=== PATIENT | male | born 1960 | race Caucasian/White ===

== ENCOUNTER 2019-07-09 01:34 | Day surgery (SDC) | payer MEDICARE, OTHER, SELFPAY ==
[2019-07-03 09:21] VITALS: BMI 32.6
--- NOTE | 2019-07-09 08:43 | WPDANESEPPF ---
Anes - Initial Pre Proc Eval Procedure: Operation Date: 07/09/19 09:30 Proposed Procedures p Esophagogastroduodenoscopy&Screen Colon - Clay Velasquez MD Date/Time: 07/09/19 08:43 Surgeon: Clay Velasquez MD Pre Op Diagnosis: Dysphagia, Neoplasm Screening Patient Data Age: 59 Gender: M Height: 5 ft 5 in Weight: 89 kg Allergies Allergy/AdvReac Type Severity Reaction Status Date / Time meperidine Allergy Unknown Verified 07/09/19 08:29 naproxen Allergy Unknown Verified 07/09/19 08:29 Penicillins Allergy Unknown Verified 07/09/19 08:29 Home Medications Medication Instructions Recorded Confirmed Type amlodipine-benazepril 1 cap PO DAILY 07/03/19 07/03/19 History apixaban [Eliquis] 5 mg PO BID 07/03/19 07/09/19 History aspirin 81 mg PO DAILY 07/03/19 07/03/19 History atorvastatin 80 mg PO DAILY 07/03/19 07/03/19 History dapagliflozin [Farxiga] 10 mg PO DAILY 07/03/19 07/03/19 History fenofibrate 160 mg PO DAILY 07/03/19 07/03/19 History fluticasone propionate [Flonase INTRANASAL 07/03/19 History Allergy Relief] furosemide [Lasix] 40 mg PO DAILY 07/03/19 07/03/19 History hydrochlorothiazide 25 mg PO DAILY 07/03/19 07/03/19 History insulin aspart U-100 [Novolog 20 unit SUBCUT TID 07/03/19 07/03/19 History U-100 Insulin aspart] insulin detemir U-100 [Levemir 30 unit SUBCUT HS 07/03/19 07/03/19 History FlexTouch U-100 Insuln] [id number] [Creon] 1 cap PO BID 07/03/19 07/03/19 History losartan 100 mg PO DAILY 07/03/19 07/03/19 History metoclopramide HCl 10 mg PO Q6H PRN 07/03/19 07/03/19 History metronidazole 500 mg PO Q12H 07/03/19 07/03/19 History omega 6-ryf-pji-fish oil [[place]-3] cap PO 07/03/19 History oxycodone-acetaminophen [Percocet] 1 tablet PO Q6H PRN 07/03/19 07/03/19 History pregabalin [Lyrica] 150 mg PO HS 07/03/19 07/03/19 History sotalol 80 mg PO BID 07/03/19 07/03/19 History tamsulosin 0.4 mg PO HS 07/03/19 07/03/19 History tizanidine 2 mg PO HS 07/03/19 07/03/19 History venlafaxine 37.5 mg PO DAILY 07/03/19 07/03/19 History Patient hx anesthesia problems: none Family hx anesthesia problems: none PMFSH Past Medical History Medical History Anxiety CAD (coronary artery disease) Cardiac defibrillator in place CVA (cerebral vascular accident) Diabetes GERD (gastroesophageal reflux disease) Pacemaker Tobacco abuse Surgical History Surgical History Hx of CABG Stented coronary artery Family History Family History Father Family history of malignant neoplasm of esophagus Social History Social History Smoking status: Former smoker Smoking end date: 06/11/87 Alcohol intake: never Gender identity (if verbalized by the patient): Male Anes - Eval Final PreProcedure Day of Procedure 07/09/19 08:43 Patient weight: obese Heart: regular rate and rhythm Lungs: decreased breath sounds Airway: Mallampati scale Neurological: alert and oriented Last oral intake: >/= 8 hours ASA classification: IV Emergent: no Anesthetic plan: proceed Anesthesia type and monitoring: general GIVS and standard monitoring Other findings: propofol etomidate Informed Consent: The patient's anesthetic plan and its attendant risks and benefits were discussed with the patient/family/POA. Questions were solicited and answers provided to the satisfaction of the patient/family/POA.
[2019-07-09 08:48] LABS: Glucose Point of Care 172 (65-105)
[2019-07-09] MEDS: LACTATED RINGERS 1,000 ML 150 ML IV CONT (08:48)
[2019-07-09 08:49] VITALS: BP 142/83; PULSE 82; RESP 14; TEMP 36.6; O2SAT 97
--- NOTE | 2019-07-09 09:06 | PM.HPGS ---
History of Present Illness History of Present Illness Consent: Risks, benefits, and alternatives have been discussed and questions answered. Patient agrees to proceed with procedure. Chief complaint: Dysphagia, Neoplasm Screening Narrative: Clyde Esquivel Sr. is a 59 year old male with bloating and diarrhea in cycles, improve briefly after using flagyl one day. I also prescribed xifaxan with only minimal relief. Also history of polyps, hemorrhoidectomy. Review of Systems Constitutional: Constitutional: Denies headache(s) and Denies weakness Eyes: Eyes: Denies blurry vision ENT: Reports Normal hearing present, Denies headache(s) and Denies neck pain Cardiovascular: Cardiovascular: Denies chest pain and Denies dyspnea Respiratory: Respiratory: Denies dyspnea Gastrointestinal: Gastrointestinal: Reports no additional gastrointestinal complaints Genitourinary: Genitourinary: Denies dysuria Musculoskeletal: Musculoskeletal: Denies neck pain Integumentary/Breasts: Skin/Breast: Denies dry skin Neurologic: Reports Normal hearing present, Denies headache(s) and Denies weakness Psychiatric: Psychiatric: Denies anxiety Endocrine: Endocrine: Denies change in body appearance Hematologic/Lymphatic: Hematologic/Lymphatic: Denies easy bleeding Allergic/Immunologic: Allergic/Immunologic: Denies urticaria PMFSH Past Medical History Medical History Anxiety CAD (coronary artery disease) Cardiac defibrillator in place CVA (cerebral vascular accident) Diabetes GERD (gastroesophageal reflux disease) Pacemaker Tobacco abuse Surgical History Surgical History Hx of CABG Stented coronary artery Family History Family History Father Family history of malignant neoplasm of esophagus Social History Social History Smoking status: Former smoker Smoking end date: 06/11/87 Alcohol intake: never Gender identity (if verbalized by the patient): Male Meds Home Medications and Allergies Home Medications Medication Instructions Recorded Confirmed Type amlodipine-benazepril 1 cap PO DAILY 07/03/19 07/03/19 History apixaban [Eliquis] 5 mg PO BID 07/03/19 07/09/19 History aspirin 81 mg PO DAILY 07/03/19 07/03/19 History atorvastatin 80 mg PO DAILY 07/03/19 07/03/19 History dapagliflozin [Farxiga] 10 mg PO DAILY 07/03/19 07/03/19 History fenofibrate 160 mg PO DAILY 07/03/19 07/03/19 History fluticasone propionate [Flonase INTRANASAL 07/03/19 History Allergy Relief] furosemide [Lasix] 40 mg PO DAILY 07/03/19 07/03/19 History hydrochlorothiazide 25 mg PO DAILY 07/03/19 07/03/19 History insulin aspart U-100 [Novolog 20 unit SUBCUT TID 07/03/19 07/03/19 History U-100 Insulin aspart] insulin detemir U-100 [Levemir 30 unit SUBCUT HS 07/03/19 07/03/19 History FlexTouch U-100 Insuln] [id number] [Creon] 1 cap PO BID 07/03/19 07/03/19 History losartan 100 mg PO DAILY 07/03/19 07/03/19 History metoclopramide HCl 10 mg PO Q6H PRN 07/03/19 07/03/19 History metronidazole 500 mg PO Q12H 07/03/19 07/03/19 History omega 6-yqv-hfm-fish oil [[place]-3] cap PO 07/03/19 History oxycodone-acetaminophen [Percocet] 1 tablet PO Q6H PRN 07/03/19 07/03/19 History pregabalin [Lyrica] 150 mg PO HS 07/03/19 07/03/19 History sotalol 80 mg PO BID 07/03/19 07/03/19 History tamsulosin 0.4 mg PO HS 07/03/19 07/03/19 History tizanidine 2 mg PO HS 07/03/19 07/03/19 History venlafaxine 37.5 mg PO DAILY 07/03/19 07/03/19 History Allergies Allergy/AdvReac Type Severity Reaction Status Date / Time meperidine Allergy Unknown Verified 07/09/19 08:29 naproxen Allergy Unknown Verified 07/09/19 08:29 Penicillins Allergy Unknown Verified 07/09/19 08:29 Vital Signs Vital Signs - 24 hr 07/09/19 08:49 Tempera
[2019-07-09 09:42] VITALS: BP 134/87; PULSE 77; RESP 18; O2SAT 97
[2019-07-09 09:52] VITALS: BP 152/86; PULSE 75; RESP 17; O2SAT 95
[2019-07-09 09:56] LABS: Glucose Point of Care 149 (65-105)
[2019-07-09 10:02] VITALS: BP 173/94; PULSE 75; RESP 22; O2SAT 97
== END 2019-07-09 10:19 | disposition home or self-care (01) ==
PROVIDERS: PCP Internal Medicine; Visit Provider Internal Medicine Gastroenterology
PROC: 0DJ08ZZ Inspection of Upper Intestinal Tract, Via Natural or Artificial Opening Endoscopic (ICD-10-PCS; CPT 43235; principal; 2019-07-09 09:30)
DX: Z12.11 Encounter for screening for malignant neoplasm of colon (principal); K57.30 Diverticulosis of large intestine without perforation or abscess without bleeding; K64.8 Other hemorrhoids; Z86.010 Personal history of colon polyps; K22.70 Barrett's esophagus without dysplasia; K63.89 Other specified diseases of intestine; K29.70 Gastritis, unspecified, without bleeding; I25.10 Atherosclerotic heart disease of native coronary artery without angina pectoris; E11.9 Type 2 diabetes mellitus without complications; K21.9 Gastro-esophageal reflux disease without esophagitis; Z95.810 Presence of automatic (implantable) cardiac defibrillator; Z79.01 Long term (current) use of anticoagulants; Z79.82 Long term (current) use of aspirin; Z79.4 Long term (current) use of insulin; Z95.1 Presence of aortocoronary bypass graft; Z95.5 Presence of coronary angioplasty implant and graft; Z87.891 Personal history of nicotine dependence; E66.9 Obesity, unspecified; Z68.33 Body mass index [BMI] 33.0-33.9, adult
CPT/HCPCS: 45380; 43239; 88305; J2704; J7120

== ENCOUNTER 2019-07-31 16:44 | IRF | payer MEDICARE, OTHER, SELFPAY ==
[2019-07-31 17:11] VITALS: BP 153/71; PULSE 74; RESP 20; TEMP 36.7; O2SAT 95; BMI 31.6
--- NOTE | 2019-07-31 17:25 | ADMGEN ---
This patient, Clyde Esquivel, was admitted to [facility] Room 223-02. Patient/family oriented to hospital policies and general routines including ID bracelet, bed and alarms, visiting hours, pain management, procedures, bathroom and other care routines, personal items, smoking policy, room service/diet, and visiting hours. Valuables list has been completed. Information on how to activate the Rapid Response Team has been discussed. Patient/Family are encouraged to report perceived risks to care and to ask questions if they do not understand what they are told or what they should do.
[2019-07-31 20:46] LABS: Glucose Point of Care 257 (65-105)
[2019-07-31 22:00] VITALS: BP 153/60; PULSE 74; RESP 18; TEMP 37.1; O2SAT 95
[2019-07-31] MEDS: AZELASTINE HCL NASAL 0.1% 137 MCG/SPR 30 ML BTL 1 SPRAY NASAL (22:50)
[2019-07-31] MEDS: SERTRALINE HCL 25 MG TABLET PO (22:51)
[2019-07-31] MEDS: TAMSULOSIN HCL 0.4 MG CAPSULE PO (22:52)
[2019-07-31] MEDS: ATORVASTATIN 40 MG TABLET 80 MG PO (22:53)
[2019-07-31] MEDS: FENOFIBRATE 160 MG TABLET PO (22:54)
[2019-07-31] MEDS: SOTALOL HCL 40 MG TABLET 120 MG PO (22:55)
[2019-07-31] MEDS: OXcarbazepine 150 MG TABLET 300 MG PO (22:56)
[2019-07-31] MEDS: INSULIN DETEMIR 100 UNITS/ML 25 UNITS SUB-Q (23:02)
[2019-07-31] MEDS: PREGABALIN 75 MG CAPSULE 150 MG PO (23:05)
[2019-08-01] VITALS (7 sets, daily range): BP systolic 110–142; BP diastolic 51–65; PULSE 66–75; RESP 17–18; TEMP 36.2–36.8; O2SAT 94–98; BMI 31.6
[2019-08-01 04:46] LABS: Add Urine Microscopic? YES; Appearance Urine Clear (Clear); Bacteria Urine Trace /hpf; Bilirubin Urine Negative (Negative); Blood Urine 1+ (Negative); Color Urine Yellow (Yellow); Glucose Urine UA 3+ mg/dL (Negative); Ketones Urine Negative (Negative); Leukocyte Esterase Ur Negative LEU/UL (Negative); Mucus Urine Rare /lpf; Nitrate Urine Negative (Negative); Protein Urine Negative (Negative); Urobilinogen Urine Negative mg/dL (<2.0)
[2019-08-01 05:33] LABS: Basophils Absolute Auto 0.1 K/mm3 (0.0-0.1); Basophils Percent Auto 1.1 % (0.2-1.2); Eosinophils Absolute Auto 0.3 K/mm3 (0-0.3); Eosinophils Percent Auto 4.7 % (0-4.4); Hematocrit 33.6 % (42.0-52.0); Hemoglobin 10.6 g/dL (14.0-18.0); Immature Granulocyte Absolute 0.07 K/mm3 (0.00-0.031); Lymphocytes Absolute Auto 1.46 K/mm3 (0.9-3.2); Lymphocytes Percent Auto 20.7 % (18.3-44.2); Mean Corpuscular HGB Conc 31.5 g/dl (32-36); Mean Corpuscular Volume 88.7 fl (80-100); Mean Platelet Volume 10.3 fl (7.4-10.4); Monocytes Absolute Auto 0.8 K/mm3 (0.1-0.6); Monocytes Percent Auto 11.6 % (2.6-8.5); Neutrophils Absolute Auto 4.3 K/mm3 (1.3-6.7); Neutrophils Percent Auto 60.9 % (45.5-73.1); Platelet Count Result 240 k/mm3 (150-375); Red Blood Count 3.79 M/mm3 (4.6-6.20); Red Cell Distribution Width 14.8 % (11.5-14.5); White Blood Count 7.1 K/mm3 (4.5-10.0)
[2019-08-01 05:44] LABS: Blood Urea Nitrogen 27 mg/dL (9-20); Calcium 9.1 mg/dL (8.4-10.2); Carbon Dioxide 33 mmol/L (22-30); Chloride 96 mmol/L (98-107); Cholesterol 192 mg/dL (0-200); Estimated CRCL calculation 63 ml/min; Estimated Glomerular Filt Rate > 60; Glucose 180 mg/dL (75-110); HDL Direct 31 mg/dL; Potassium 3.8 mmol/L (3.4-5.0); Sodium 139 mmol/L (137-145); Triglycerides 503 mg/dL (<150)
[2019-08-01 05:45] LABS: Hemoglobin A1C 7.5 % (<5.7)
[2019-08-01 05:55] LABS: LDL Cholesterol Direct 97 mg/dL
[2019-08-01] MEDS: AZELASTINE HCL NASAL 0.1% 137 MCG/SPR 30 ML BTL 1 SPRAY NASAL ×2 (06:19→17:12)
[2019-08-01 07:06] LABS: Glucose Point of Care 169 (65-105)
[2019-08-01] MEDS: PHENAZOPYRIDINE HCL 100 MG TABLET 200 MG PO ×3 (08:22→17:12)
[2019-08-01] MEDS: OMEGA 3 POLYUNSAT FATTY ACIDS 1 GM CAP 2 GM PO (08:22)
[2019-08-01] MEDS: SOTALOL HCL 40 MG TABLET 120 MG PO ×2 (08:23→19:55)
[2019-08-01] MEDS: LANSOPRAZOLE ORAL SUSP 30 MG/10 ML ORAL.SUSP PO (08:23)
[2019-08-01] MEDS: OXcarbazepine 150 MG TABLET 300 MG PO ×2 (08:23→17:12)
[2019-08-01] MEDS: TAMSULOSIN HCL 0.4 MG CAPSULE PO ×2 (08:23→17:11)
[2019-08-01] MEDS: hydroCHLOROthiazide 25 MG TABLET PO (08:24)
[2019-08-01] MEDS: FLUTICASONE PROPIONATE 0.05% NA SPR 16 GM BTL (*BKC) 1 SPRAY NASAL (08:24)
[2019-08-01] MEDS: AMLODIPINE BESYLATE 5 MG TABLET PO (08:24)
[2019-08-01] MEDS: SERTRALINE HCL 25 MG TABLET PO ×2 (08:24→17:11)
[2019-08-01] MEDS: LIPASE/AMYLASE/PROTEASE 12,000 UNITS CAP 2 CAP PO (08:24)
[2019-08-01] MEDS: LOSARTAN POTASSIUM 100 MG TABLET PO (08:24)
[2019-08-01] MEDS: INSULIN ASPART (*BKC) 100 UNITS/ML 20 UNITS SUB-Q ×2 (08:25→12:02)
[2019-08-01] MEDS: INSULIN DETEMIR 100 UNITS/ML 25 UNITS SUB-Q ×2 (08:26→21:06)
[2019-08-01 11:58] LABS: Glucose Point of Care 160 (65-105)
--- NOTE | 2019-08-01 12:38 | PHAR ---
The patient's home med of Farxiga 10mg has been verified.
--- NOTE | 2019-08-01 13:43 | PCSTNOTE ---
Addendum entered by TOMI Kelly 08/02/19 13:56: Update 08/02/19 Patient c/o difficulty chewing regular solids since diet upgrade. Would recommend downgrade to soft and bite-size solids with ST to focus on oral-motor therapy. Original Note: Please refer to the Bedside Swallow Evaluation in the EMR.
--- NOTE | 2019-08-01 14:31 | PHAR ---
HOME MEDICATION VERIFIED BY PHARMACY: AMERICAINE (BENZOCAINE 20%) HEMORRHOIDAL OINTMENT
--- NOTE | 2019-08-01 15:40 | RPD ---
INDIVIDUALIZED PLAN OF CARE FOR Clyde Esquivel Brief Synthesis of Pre-Admission Screen, Post-Admission Evaluation and Therapy Evaluations: The patient presents to rehab with Right cerebral hemisphere stroke with hemorrhage. Comorbidities include Hypertension, coronary artery disease, status post right carotid endarterectomy, urinary retention, acute pain, migraine headaches, cardiomyopathy, left hemiparesis, diplopia, depression, anxiety, dysphagia, delayed processing. The patient requires physician services for neurology services, medical oversight, and coordination of care. The patient needs physician monitoring and treatment of anemia, perioperative blood loss, monitoring for adverse reactions to new medications, monitoring for infection, monitoring of urinary retention, and pain control. The patient requires nursing services for frequent neuro checks, medication management and education, pressure relief and skin care management, monitoring of labs, bladder training, and fall/safety precautions. Deficits include:ADLs, Balance, Cognition, Endurance, Mobility, Pain Management, ROM, Safety, Strength, Transfers Hot Dip Tinning Supervisor/Case Management for: Discharge Planning and Patient/Family Counseling Physical Therapy: 5 days per week for 90 minutes. Treatments may include: Therapeutic Exercise, Gait Training, Neuromuscular Re-education, Transfer Training, Community Reintegration, Bed Mobility, Patient/Family Education, Wheelchair Mobility Group Therapy/Concurrent Therapy Rationales: -Improve attention span during functional activities in a distracted environment. -Enhance problem solving and/or adequate judgment skills during functional activities in a distracted environment. -Promote increased safety awareness in a distracted environment to reduce fall risk with functional tasks, transfers, and ambulation to allow a more safe, self-sufficient return to the home environment. -Improve dynamic balance skills to promote safety and independence with functional activities in a distracted environment for maximum gain. Occupational Therapy: 5 days per week for 90 minutes. Treatments may include: Therapeutic Exercise, Therapeutic Activity, Cognitive Training, Self-Care Transfer Training, Community Reintegration, Home Management, Patient/Family Education, Wheelchair Mobility Training, Energy Conservation Training Group Therapy/Concurrent Therapy Rationales: -Allow therapist to observe and teach generalization and carry-over of skills learned in individual therapy. -Enhance problem solving and sequencing skills during therapeutic activities in a distracted environment. -Promote increased safety awareness in a realistic setting to reduce fall risk with functional tasks due to visual and verbal distractions. -Increase functional level with ADLs, ADL transfers and use of adaptive equipment through therapeutic activities with others while promoting safety to allow a more safe, self-sufficient return home. Medical Prognosis: Good Anticipated Length of Stay: 12 days Rehab Goals: Eating Goal: 05-Setup or Clean Up Assistance Oral Hygiene Goal: 06-Independent Toileting Hygiene Goal: 04-Supervision or Touching Assistance Shower/Bathe Self Goal: 04-Supervision or Touching Assistance Upper Body Dressing Goal: 04-Supervision or Touching Assistance Lower Body Dressing Goal: 04-Supervision or Touching Assistance Putting On/Taking Off Footwear Goal: 04-Supervision or Touching Assistance Rolling Left and Right Goal: 06-Independent Sit to Lying Goal: 06-Independent Lying to Sitting on Side of Bed Goal: 06-Independent Sit to Stand Goal: 06-Independent Chair/Ywe-an-Kuvgc Transfer Goal: 06-Independent Toilet Transfer Goal: 06-Independent Car Transfer Goal: 06-Independent Walk 10' Goal: 06-Independent Walk 50' with Two Turns Goal: 06-Independent Walk 150' Goal: 06-Independent Walk 10' on Uneven Surface Goal: 06-Independent 1 Step (Curb) Goal: 06-Independent 4 Steps Goal: 06-Independ
[2019-08-01] MEDS: TRAMADOL HCL 50 MG TABLET PO (16:00)
[2019-08-01 17:02] LABS: Glucose Point of Care 97 (65-105)
--- NOTE | 2019-08-01 17:03 | PC.NURSE ---
Glucose results 97. MD notified and to hold dinnertime insulin dose.
--- NOTE | 2019-08-01 18:36 | PC.NURSE ---
pt was upgraded earlier to a regular diet per speech therapy. patient had difficulty with the food consistency and did not eat well. patient and spouse requested he go back to minced and moist. Md updated and received new order. will continue to monitor.
--- NOTE | 2019-08-01 18:37 | PC.NURSE ---
pt started on pyridium at approx 0900. His urine is currently reddish yellow in color. acharya continues to be intact. will continue to monitor
--- NOTE | 2019-08-01 19:45 | REHAB_ITS ---
DATE OF SERVICE: 08/01/2019 This 59 years old right-handed male has been admitted to the rehab floor of [facility] with the primary rehab impairment category of stroke and the etiological diagnosis of right cerebral hemisphere stroke with hemorrhage. The patient was seen at 3:00 p.m. on 08/01/2019. HISTORY OF PRESENT ILLNESS: This 59 years old right-handed male with prior medical history of: 1. Cardiomyopathy. 2. Bypass surgery. 3. AICD. 4. Migraine headaches. Presented to [facility] on 07/25/2019, to undergo a right carotid endarterectomy with Dr. Ruth. Postoperatively, within a few hours, he had to undergo thrombectomy of the right coronary artery with patch angioplasty. The findings at that time were thrombus of the right internal carotid artery. A CT scan of the head was obtained and revealed the presence of an evolving stroke within the right cerebral hemisphere with a small focal area of hemorrhage as well. Neurology Team was consulted and were holding off on anticoagulation in the setting of hemorrhage and were planning to hold off for a couple of weeks post stroke as well. A repeat CT head on 07/28/2019, demonstrated no change from the right middle cerebral artery territorial infarct with hemorrhagic transformation and no mass effect. Physical examination revealed weakness of the left hand, visual difficulties on the left side, diplopia, left hemiparesis, and urinary retention. His Clarke catheter was removed on 07/28/2019, replaced the same day because of the recurrence of the retention. He was started on Flomax and voiding trial to be repeated in 2 to 3 days. He was transferred out of ICU on 07/29/2019. He passed his swallowing study and was on dysphagia to mechanical soft diet with thin liquids. Physical examination continued to reveal left-sided hemiparesis, diplopia, decreased gross motor control, decreased safety awareness, and impaired balance. Therapy was initiated at the acute care facility and the patient transferred to us from [facility] on 07/31/2019. SURGERY OR FALL: The patient has had major surgery in the 100 days prior to admission. He has had 1 fall in the past year and 1 fall with injury in the past year as well. PAST MEDICAL HISTORY: As mentioned above, migraine headache, carotid artery stenosis, coronary artery disease with cardiomyopathy, and hypertension. PAST SURGICAL HISTORY: Cardiac bypass surgery, knee surgery. SOCIAL HISTORY: . Nonsmoker. No alcohol abuse. FAMILY HISTORY: Nothing known. PRIOR LEVEL OF FUNCTION: Eating was independent so as the oral care, toileting, shower, bathing, upper body, lower body, footwear, rolling left and right, sit to lying, lying to sitting, sit to stand, bed to chair transfer, toilet transfer, the patient was previously ambulating independently 750 feet without assistive device, and was able to complete 5 stairs independently. CURRENT LEVEL OF FUNCTION: Eating was independent. Oral care was partial moderate assistance. Toilet hygiene, substantial maximal assistance. Bathing and shower, substantial maximal assistance. Upper body, substantial maximal assistance. Lower body, substantial maximal assistance. Footwear, substantial maximal assistance. Rolling left and right required supervision or touching assistance. Sit to lying, partial moderate assistance. Lying to sitting, partial moderate assistance. Sit to stand, partial moderate assistance. Xnh-kx-tcetq transfer, partial moderate assistance. Toilet transfer, partial moderate assistance. The patient has walked, partial moderate assistance with single-point cane for 140 feet. Wheelchair, not tested. Stairs, not tested. GOALS: Our therapist will evaluate the patient and establish the goals; however, upon pre-admission screening, t
[2019-08-01] MEDS: FENOFIBRATE 160 MG TABLET PO (19:54)
[2019-08-01] MEDS: ATORVASTATIN 40 MG TABLET 80 MG PO (19:54)
[2019-08-01] MEDS: SERTRALINE HCL 50 MG TABLET PO (19:57)
[2019-08-01] MEDS: busPIRone HCL 5 MG TABLET PO (19:57)
[2019-08-01] MEDS: PREGABALIN 75 MG CAPSULE 150 MG PO (20:01)
[2019-08-01 21:04] LABS: Glucose Point of Care 158 (65-105)
[2019-08-02 06:00] VITALS: BP 154/75; PULSE 78; RESP 19; TEMP 36.3; O2SAT 96
[2019-08-02] MEDS: AZELASTINE HCL NASAL 0.1% 137 MCG/SPR 30 ML BTL 1 SPRAY NASAL ×2 (06:27→18:03)
[2019-08-02 06:38] LABS: Glucose Point of Care 125 (65-105)
[2019-08-02] MEDS: INSULIN ASPART (*BKC) 100 UNITS/ML 20 UNITS SUB-Q ×3 (08:40→18:05)
[2019-08-02] MEDS: AMLODIPINE BESYLATE 5 MG TABLET PO (08:41)
[2019-08-02] MEDS: PHENAZOPYRIDINE HCL 100 MG TABLET 200 MG PO ×3 (08:41→18:02)
[2019-08-02] MEDS: FLUTICASONE PROPIONATE 0.05% NA SPR 16 GM BTL (*BKC) 1 SPRAY NASAL (08:42)
[2019-08-02] MEDS: hydroCHLOROthiazide 25 MG TABLET PO (08:44)
[2019-08-02 08:45] VITALS: PULSE 76
[2019-08-02] MEDS: LIPASE/AMYLASE/PROTEASE 12,000 UNITS CAP 2 CAP PO (08:45)
[2019-08-02] MEDS: SOTALOL HCL 40 MG TABLET 120 MG PO ×2 (08:45→20:15)
[2019-08-02] MEDS: TIZANIDINE HCL 2 MG TABLET PO (08:46)
[2019-08-02] MEDS: METOCLOPRAMIDE HCL 10 MG TABLET PO (08:46)
[2019-08-02] MEDS: OMEGA 3 POLYUNSAT FATTY ACIDS 1 GM CAP 2 GM PO (08:47)
[2019-08-02] MEDS: SERTRALINE HCL 25 MG TABLET PO (08:47)
[2019-08-02] MEDS: TAMSULOSIN HCL 0.4 MG CAPSULE PO ×2 (08:48→18:03)
[2019-08-02] MEDS: LOSARTAN POTASSIUM 100 MG TABLET PO (08:48)
[2019-08-02] MEDS: OXcarbazepine 150 MG TABLET 300 MG PO ×2 (08:48→18:02)
[2019-08-02] MEDS: INSULIN DETEMIR 100 UNITS/ML 25 UNITS SUB-Q ×2 (08:52→20:13)
[2019-08-02] MEDS: TRAMADOL HCL 50 MG TABLET PO (11:16)
[2019-08-02 12:15] LABS: Glucose Point of Care 101 (65-105)
[2019-08-02] MEDS: PANTOPRAZOLE 40 MG TABLET PO (12:43)
[2019-08-02 14:00] VITALS: BP 116/61; PULSE 74; RESP 18; TEMP 36.9; O2SAT 94
[2019-08-02 16:00] VITALS: PULSE 74; RESP 18; O2SAT 94
[2019-08-02 20:15] VITALS: PULSE 80
[2019-08-02] MEDS: ATORVASTATIN 40 MG TABLET 80 MG PO (20:17)
[2019-08-02] MEDS: PREGABALIN 75 MG CAPSULE 150 MG PO (20:18)
[2019-08-02] MEDS: FENOFIBRATE 160 MG TABLET PO (20:19)
[2019-08-02] MEDS: busPIRone HCL 5 MG TABLET PO (20:19)
[2019-08-02] MEDS: SERTRALINE HCL 50 MG TABLET PO (20:19)
[2019-08-02 21:36] LABS: Glucose Point of Care 99 (65-105)
[2019-08-02 22:00] VITALS: BP 112/62; PULSE 74; RESP 16; TEMP 36.6; O2SAT 93
[2019-08-03 05:08] VITALS: BP 96/57; PULSE 72; RESP 18; TEMP 36.3; O2SAT 96
[2019-08-03] MEDS: AZELASTINE HCL NASAL 0.1% 137 MCG/SPR 30 ML BTL 1 SPRAY NASAL ×2 (06:51→17:35)
[2019-08-03 06:58] LABS: Glucose Point of Care 113 (65-105)
[2019-08-03] MEDS: FLUTICASONE PROPIONATE 0.05% NA SPR 16 GM BTL (*BKC) 1 SPRAY NASAL (08:37)
[2019-08-03] MEDS: TIZANIDINE HCL 2 MG TABLET PO (08:37)
[2019-08-03] MEDS: AMLODIPINE BESYLATE 5 MG TABLET PO (08:38)
[2019-08-03] MEDS: PHENAZOPYRIDINE HCL 100 MG TABLET 200 MG PO ×3 (08:38→17:36)
[2019-08-03] MEDS: OMEGA 3 POLYUNSAT FATTY ACIDS 1 GM CAP 2 GM PO (08:39)
[2019-08-03] MEDS: hydroCHLOROthiazide 25 MG TABLET PO (08:40)
[2019-08-03] MEDS: LIPASE/AMYLASE/PROTEASE 12,000 UNITS CAP 2 CAP PO (08:41)
[2019-08-03] MEDS: LOSARTAN POTASSIUM 100 MG TABLET PO (08:41)
[2019-08-03] MEDS: OXcarbazepine 150 MG TABLET 300 MG PO ×2 (08:42→17:38)
[2019-08-03] MEDS: PANTOPRAZOLE 40 MG TABLET PO (08:42)
[2019-08-03 08:43] VITALS: PULSE 70
[2019-08-03] MEDS: SOTALOL HCL 40 MG TABLET 120 MG PO (08:43)
[2019-08-03] MEDS: TAMSULOSIN HCL 0.4 MG CAPSULE PO ×2 (08:43→17:39)
[2019-08-03] MEDS: SERTRALINE HCL 25 MG TABLET PO (08:43)
[2019-08-03] MEDS: INSULIN ASPART (*BKC) 100 UNITS/ML 20 UNITS SUB-Q ×2 (08:48→12:32)
[2019-08-03] MEDS: INSULIN DETEMIR 100 UNITS/ML 25 UNITS SUB-Q ×2 (08:49→21:13)
[2019-08-03] MEDS: TRAMADOL HCL 50 MG TABLET PO (08:59)
[2019-08-03 11:53] LABS: Glucose Point of Care 104 (65-105)
[2019-08-03 14:00] VITALS: BP 98/51; RESP 16; TEMP 36.9; O2SAT 90
[2019-08-03 16:51] LABS: Glucose Point of Care 50 (65-105)
[2019-08-03] MEDS: ATORVASTATIN 40 MG TABLET 80 MG PO (20:30)
[2019-08-03] MEDS: busPIRone HCL 5 MG TABLET PO (20:31)
[2019-08-03] MEDS: FENOFIBRATE 160 MG TABLET PO (20:31)
[2019-08-03] MEDS: SOTALOL HCL 40 MG, SOTALOL HCL 80 MG 120 MG PO (20:31)
[2019-08-03] MEDS: PREGABALIN 75 MG CAPSULE 150 MG PO (20:31)
[2019-08-03] MEDS: SERTRALINE HCL 50 MG TABLET PO (20:31)
[2019-08-03 21:05] LABS: Glucose Point of Care 153 (65-105)
[2019-08-03 22:00] VITALS: BP 112/53; PULSE 74; RESP 16; TEMP 36.8; O2SAT 94
[2019-08-04] MEDS: AZELASTINE HCL NASAL 0.1% 137 MCG/SPR 30 ML BTL 1 SPRAY NASAL ×2 (05:39→17:28)
[2019-08-04 06:00] VITALS: BP 94/58; PULSE 78; RESP 19; TEMP 36.1; O2SAT 95
[2019-08-04 06:31] LABS: Glucose Point of Care 137 (65-105)
[2019-08-04] MEDS: INSULIN ASPART (*BKC) 100 UNITS/ML 20 UNITS SUB-Q ×3 (08:58→17:24)
[2019-08-04] MEDS: OMEGA 3 POLYUNSAT FATTY ACIDS 1 GM CAP 2 GM PO (09:05)
[2019-08-04] MEDS: TAMSULOSIN HCL 0.4 MG CAPSULE PO ×2 (09:05→17:28)
[2019-08-04] MEDS: PANTOPRAZOLE 40 MG TABLET PO (09:06)
[2019-08-04] MEDS: PHENAZOPYRIDINE HCL 100 MG TABLET 200 MG PO ×3 (09:06→17:27)
[2019-08-04] MEDS: OXcarbazepine 150 MG TABLET 300 MG PO ×2 (09:06→17:27)
[2019-08-04] MEDS: hydroCHLOROthiazide 25 MG TABLET PO (09:06)
[2019-08-04] MEDS: AMLODIPINE BESYLATE 5 MG TABLET PO (09:06)
[2019-08-04] MEDS: SERTRALINE HCL 25 MG TABLET PO (09:06)
[2019-08-04] MEDS: LIPASE/AMYLASE/PROTEASE 12,000 UNITS CAP 2 CAP PO (09:07)
[2019-08-04] MEDS: LOSARTAN POTASSIUM 100 MG TABLET PO (09:07)
[2019-08-04] MEDS: FLUTICASONE PROPIONATE 0.05% NA SPR 16 GM BTL (*BKC) 1 SPRAY NASAL (09:08)
[2019-08-04] MEDS: INSULIN DETEMIR 100 UNITS/ML 25 UNITS SUB-Q (09:15)
[2019-08-04 12:11] LABS: Glucose Point of Care 201 (65-105)
[2019-08-04 14:00] VITALS: BP 112/62; PULSE 80; RESP 18; TEMP 36.6; O2SAT 98
--- NOTE | 2019-08-04 14:02 | PCDIET ---
Nutrition Follow-Up Complete: Decreased fat/cholesterol/sodium needs related to cardiovascular disease as evidenced by stroke, CAD, HTN. Patient to consume 75% or more of meals Goal not met. Average meal consumption is 63%. Nutrition Recommendation: Recommend continuation of DM CHO Consistent diet to establish carb consistency and help manage blood glucose levels. Recommend administration of motility agent, if medically appropriate; last recorded BM 07/30 Last recorded weight is 86.1 kg. Bowel Motility: +BM 07/30 Labs Reviewed: POC capillary glucose (137) Meds Noted:Lovaza, Reglan, Zoloft, Lipitor, Creon, Novolog , Cozaar, Ultram Additional Notes: Talked with pt's significant other. She states his appetite has been fairly good. Pt was Nauseous on Sunday but resolved quickly. Provided DM and stroke ed to pt's significant other. Will follow up with speech to track progress on swallowing and diet advancement. Follow up in 3 days.
--- NOTE | 2019-08-04 14:53 | PCNSR ---
On 08/04/19, the student, Sherri Woodard, provided care and completed [facility] documentation on this patient. I have reviewed the student's documentation and agree with the findings.
[2019-08-04 16:56] LABS: Glucose Point of Care 98 (65-105)
[2019-08-04 20:43] LABS: Glucose Point of Care 50 (65-105)
[2019-08-04 21:22] LABS: Glucose Point of Care 84 (65-105)
[2019-08-04] MEDS: ATORVASTATIN 40 MG TABLET 80 MG PO (21:46)
[2019-08-04] MEDS: busPIRone HCL 5 MG TABLET PO (21:47)
[2019-08-04] MEDS: FENOFIBRATE 160 MG TABLET PO (21:47)
[2019-08-04] MEDS: PREGABALIN 75 MG CAPSULE 150 MG PO (21:50)
[2019-08-04 21:55] VITALS: PULSE 80
[2019-08-04] MEDS: SOTALOL HCL 40 MG, SOTALOL HCL 80 MG 120 MG PO (21:55)
[2019-08-04] MEDS: SERTRALINE HCL 50 MG TABLET PO (21:57)
[2019-08-04 22:00] VITALS: BP 107/62; PULSE 74; RESP 17; TEMP 36.2; O2SAT 98
[2019-08-05] MEDS: AZELASTINE HCL NASAL 0.1% 137 MCG/SPR 30 ML BTL 1 SPRAY NASAL ×2 (05:41→18:06)
[2019-08-05 06:00] VITALS: BP 131/65; PULSE 77; RESP 18; TEMP 36.2; O2SAT 90
[2019-08-05 07:03] LABS: Glucose Point of Care 119 (65-105)
[2019-08-05] MEDS: AMLODIPINE BESYLATE 5 MG TABLET PO (08:29)
[2019-08-05] MEDS: FLUTICASONE PROPIONATE 0.05% NA SPR 16 GM BTL (*BKC) 1 SPRAY NASAL (08:29)
[2019-08-05] MEDS: PHENAZOPYRIDINE HCL 100 MG TABLET 200 MG PO ×3 (08:29→18:05)
[2019-08-05] MEDS: INSULIN ASPART (*BKC) 100 UNITS/ML 20 UNITS SUB-Q ×3 (08:29→18:07)
[2019-08-05] MEDS: polyethylene glycoL 3350 17 GM POWD.PACK PO (08:30)
[2019-08-05] MEDS: OXcarbazepine 150 MG TABLET 300 MG PO ×2 (08:30→18:05)
[2019-08-05] MEDS: LIPASE/AMYLASE/PROTEASE 12,000 UNITS CAP 2 CAP PO (08:30)
[2019-08-05] MEDS: PANTOPRAZOLE 40 MG TABLET PO (08:30)
[2019-08-05] MEDS: INSULIN DETEMIR 100 UNITS/ML 25 UNITS SUB-Q ×2 (08:30→20:55)
[2019-08-05] MEDS: OMEGA 3 POLYUNSAT FATTY ACIDS 1 GM CAP 2 GM PO (08:30)
[2019-08-05] MEDS: LOSARTAN POTASSIUM 100 MG TABLET PO (08:30)
[2019-08-05] MEDS: hydroCHLOROthiazide 25 MG TABLET PO (08:30)
[2019-08-05 08:31] VITALS: PULSE 76
[2019-08-05] MEDS: SERTRALINE HCL 25 MG TABLET PO (08:31)
[2019-08-05] MEDS: TAMSULOSIN HCL 0.4 MG CAPSULE PO ×2 (08:31→18:06)
[2019-08-05] MEDS: SOTALOL HCL 40 MG, SOTALOL HCL 80 MG 120 MG PO ×2 (08:31→20:54)
[2019-08-05 12:19] LABS: Glucose Point of Care 153 (65-105)
[2019-08-05 14:00] VITALS: BP 138/62; PULSE 78; RESP 20; TEMP 36.2; O2SAT 97
--- NOTE | 2019-08-05 14:16 | WPDNEURORHBP ---
Subjective Date/time seen: 08/05/19 14:16 Interval history: this 59-year-old gentleman who is significantly hard of hearing and also has decreased vision related to most likely he has underlying diabetic retinopathy is here on the acute rehab after suffering from right-sided intracranial hemorrhage which has left him with the visual field defect diplopia and left-sided annette plegia are much more involved than the leg he also has a Clarke catheter for which he will need the bladder training patient denies any headache neck pain chest pain shortness of breath fever chills sore throat diarrhea abdominal pain Review of Systems Review of Systems: All systems reviewed & are unremarkable except as noted in HPI and below Functional Status Ambulation Ability Ability to Ambulate 10 Feet: Standby Assistance Ability to Ambulate 50 Feet With 2 Turns: Standby Assistance Ability to Ambulate 150 Feet: Standby Assistance Ambulation Assistive Devices: Cane Transfers Ability Ability to Transfer In/Out of Chair: Standby Assistance Exam Const: General: comfortable and no acute distress Eyes: Other: left-sided visual field defect along with diabetic retinopathy Neck: Neck: supple and no JVD Resp: Effort & Inspection: normal respiratory effort Auscultation: clear to auscultation bilaterally Cardio: Rate: regular rate Rhythm: regular rhythm GI: GI Palp: Yes Soft to palpation Auscultation: normal bowel sounds Skin: General skin exam: normal color and no rashes or lesions noted Neuro: Other: patient has significant decreased hearing bilaterally and according to his does not want to wear the hearing aid he has diplopia related to his stroke and has abnormal gaze and needs patch for him to see fairly decently Extrem: General: normal to inspection Objective Data Vital Signs Vital Signs: Vital Signs - 24 hr 08/04/19 21:55 08/04/19 22:00 08/05/19 06:00 Temperature 36.2 C L 36.2 C L Pulse Rate 80 74 77 Respiratory Rate 17 18 Blood Pressure 107/62 131/65 Pulse Oximetry 98 90 08/05/19 08:31 Temperature Pulse Rate 76 Respiratory Rate Blood Pressure Pulse Oximetry Intake/Output Intake/Output: Intake & Output 08/02/19 08/03/19 08/04/19 08/05/19 23:59 23:59 23:59 23:59 Intake Total 1367 336 9790 360 Output Total 778 669 4875 850 Balance 1155 -30 750 -490 Meds/Results Medications: Active Medications Generic Name Dose Route Start Last Admin Trade Name Freq PRN Reason Stop Dose Admin Acetaminophen 1,000 mg 07/31/19 20:55 Tylenol Tablet PO Q6H PRN Mild Pain (1-3) or Fever Acetaminophen/Codeine Phosphate 2 tab 07/31/19 20:35 08/04/19 20:20 Tylenol #3 PO 2 tab Q6H PRN Administration Pain Rated 4-6 Albuterol 2 puff 08/02/19 14:43 Proventil Hfa INHALATION QIDRT PRN Shortness Of Breath Amlodipine Besylate 5 mg 08/01/19 09:00 08/05/19 08:29 Norvasc PO 5 mg DAILY ROLANDA Administration Lipase/Protease/Amylase 2 cap 08/01/19 09:00 08/05/19 08:[address] 12,000 Units Capsule PO 08/31/19 09:01 2 cap DAILY ROLANDA Administration Atorvastatin Calcium 80 mg 07/31/19 21:00 08/04/19 21:46 Lipitor PO 80 mg HS ROLANDA Administration Azelastine HCl 1 spray 07/31/19 18:00 08/05/19 05:41 Astelin NASAL 1 spray Q12H ROLANDA Administration Buspirone HCl 5 mg 08/01/19 21:00 08/04/19 21:47 Buspar PO 5 mg HS ROLANDA Administration Dextrose 12.5 gm 07/31/19 18:00 Dextrose 50% Syringe IV PUSH PRN PRN Hypoglycemia Protocol Fenofibrate 160 mg 07/31/19 21:00 08/04/19 21:47 Fenofibrate PO 160 mg HS ROLANDA Administration Fish Oil 2 gm 08/01/19 09:00 08/05/19 08:30 Lovaza PO 2 gm DAILY ROLANDA Administration Fluticasone Propionate 1 spray 08/01/19 09:00 08/05/19 08:29 Flonase 0.05% Nasal [place] NASAL 1 spray DAILY ROLANDA Administration Glucagon 1 mg 07/31/19 18:00 Glucagon For Inj IM PRN
--- NOTE | 2019-08-05 15:05 | PCCCNOTE ---
On 08/05/19, the student, [Ar Beckman], provided care and completed [facility] documentation on this patient. I have reviewed the student's documentation and agree with the findings.
[2019-08-05 17:27] LABS: Glucose Point of Care 98 (65-105)
[2019-08-05] MEDS: TRAMADOL HCL 50 MG TABLET PO (18:17)
[2019-08-05 20:54] VITALS: PULSE 80
[2019-08-05] MEDS: SERTRALINE HCL 50 MG TABLET PO (20:54)
[2019-08-05] MEDS: busPIRone HCL 5 MG TABLET PO (20:54)
[2019-08-05] MEDS: FENOFIBRATE 160 MG TABLET PO (20:54)
[2019-08-05] MEDS: PREGABALIN 75 MG CAPSULE 150 MG PO (20:55)
[2019-08-05] MEDS: ATORVASTATIN 40 MG TABLET 80 MG PO (20:55)
[2019-08-05 21:59] VITALS: BP 117/67; PULSE 76; RESP 16; TEMP 36.1; O2SAT 90
[2019-08-05 22:01] LABS: Glucose Point of Care 104 (65-105)
[2019-08-06 06:00] VITALS: BP 115/53; PULSE 77; RESP 18; TEMP 36.3; O2SAT 98
[2019-08-06] MEDS: AZELASTINE HCL NASAL 0.1% 137 MCG/SPR 30 ML BTL 1 SPRAY NASAL ×2 (06:04→18:22)
[2019-08-06] MEDS: TRAMADOL HCL 50 MG TABLET PO (06:25)
[2019-08-06 06:58] LABS: Glucose Point of Care 133 (65-105)
[2019-08-06] MEDS: PHENAZOPYRIDINE HCL 100 MG TABLET 200 MG PO ×3 (08:36→18:21)
[2019-08-06] MEDS: LIPASE/AMYLASE/PROTEASE 12,000 UNITS CAP 2 CAP PO (08:37)
[2019-08-06] MEDS: hydroCHLOROthiazide 25 MG TABLET PO (08:37)
[2019-08-06] MEDS: polyethylene glycoL 3350 17 GM POWD.PACK PO (08:38)
[2019-08-06] MEDS: PANTOPRAZOLE 40 MG TABLET PO (08:38)
[2019-08-06] MEDS: LOSARTAN POTASSIUM 100 MG TABLET PO (08:38)
[2019-08-06] MEDS: OXcarbazepine 150 MG TABLET 300 MG PO ×2 (08:38→18:21)
[2019-08-06] MEDS: OMEGA 3 POLYUNSAT FATTY ACIDS 1 GM CAP 2 GM PO (08:38)
[2019-08-06] MEDS: SERTRALINE HCL 25 MG TABLET PO (08:38)
[2019-08-06 08:39] VITALS: PULSE 77
[2019-08-06] MEDS: SOTALOL HCL 40 MG, SOTALOL HCL 80 MG 120 MG PO ×2 (08:39→20:37)
[2019-08-06] MEDS: AMLODIPINE BESYLATE 5 MG TABLET PO (08:42)
[2019-08-06] MEDS: TAMSULOSIN HCL 0.4 MG CAPSULE PO ×2 (08:42→18:21)
[2019-08-06] MEDS: FLUTICASONE PROPIONATE 0.05% NA SPR 16 GM BTL (*BKC) 1 SPRAY NASAL (08:43)
[2019-08-06] MEDS: INSULIN DETEMIR 100 UNITS/ML 25 UNITS SUB-Q ×2 (08:44→22:16)
[2019-08-06] MEDS: INSULIN ASPART (*BKC) 100 UNITS/ML 20 UNITS SUB-Q ×3 (08:49→18:19)
[2019-08-06 10:55] LABS: Glucose Point of Care 53 (65-105)
[2019-08-06 11:55] LABS: Glucose Point of Care 124 (65-105)
--- NOTE | 2019-08-06 12:40 | WPDNEURORHBP ---
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 with hemorrhagic component to it he also has a history of having had AICD cardiomyopathy coronary artery bypass surgery and history of migraine headache along with history of significant hearing loss and also decreased vision bilaterally most likely related to combination of either diabetic retinopathy or cataract the patient does not want to use the hearing aid and likewise has not seen an account manager employee benefits have a decent eye examination for proper care of his visual deficit Today his noticed any himself complained of jerking of the right arm along with the right leg in voluntarily and without any headaches nausea vomiting chest pain shortness of breath I examined him at the time he was having jerks is looks like to me as focal seizure affecting the right arm more so than the right leg Review of Systems Review of Systems: All systems reviewed & are unremarkable except as noted in HPI and below Functional Status Ambulation Ability Ability to Ambulate 10 Feet: Standby Assistance Ability to Ambulate 50 Feet With 2 Turns: Standby Assistance Ability to Ambulate 150 Feet: Standby Assistance Ambulation Assistive Devices: Cane Transfers Ability Ability to Transfer In/Out of Chair: Standby Assistance Exam Const: General: comfortable and no acute distress HENMT: General nose exam: Normal nares present Mouth: Yes moist mucous membranes Other: significant hearing loss bilaterally Eyes: General: appearance normal, both eyes and all related structures Other: decreased visual acuity with evidence of retinopathy and cataract formation Neck: Neck: supple and no JVD Resp: Effort & Inspection: normal respiratory effort Auscultation: clear to auscultation bilaterally Cardio: Rate: regular rate Rhythm: regular rhythm GI: GI Palp: Yes Soft to palpation Auscultation: normal bowel sounds Urinary Catheter: Urinary Catheter: patent and draining Skin: General skin exam: normal color and no rashes or lesions noted Neuro: Other: patient is awake and alert and well oriented however does have a memory deficit particularly of the short-term memory and he was unable to recall the conversation we had in yesterday's team conference he does have a hearing deficit and the visual deficit along with left-sided visual field defects it and the left-sided moderately severe hemiparesis I was able to catch him having what sounds like and look like focal seizure affecting the right arm on the right leg Extrem: General: normal to inspection Psych: Mental Status: mental status grossly normal Other: the patient does have decreased memory and at times decreased insight and the left-sided neglect Objective Data Vital Signs Vital Signs: Vital Signs - 24 hr 08/05/19 14:00 08/05/19 20:54 08/05/19 21:59 Temperature 36.2 C L 36.1 C L Pulse Rate 78 80 76 Respiratory Rate 20 16 Blood Pressure 138/62 117/67 Pulse Oximetry 97 90 08/06/19 06:00 08/06/19 08:39 Temperature 36.3 C L Pulse Rate 77 77 Respiratory Rate 18 Blood Pressure 115/53 L Pulse Oximetry 98 Intake/Output Intake/Output: Intake & Output 08/03/19 08/04/19 08/05/19 08/06/19 23:59 23:59 23:59 23:59 Intake Total 620 1850 840 360 Output Total 650 4161 820 4481 Balance -30 699 -10 -238 Meds/Results Medications: Active Medications Generic Name Dose Route Start Last Admin Trade Name Freq PRN Reason Stop Dose Admin Acetaminophen 1,000 mg 07/31/19 20:55 Tylenol Tablet PO Q6H PRN Mild Pain (1-3) or Fever Acetaminophen/Codeine Phosphate 2 tab 07/31/19 20:35 08/04/19 20:20 Tylenol #3 PO 2 tab Q6H PRN Administration Aleyda
[2019-08-06] MEDS: ACETAMINOPHEN 500 MG TABLET 1000 MG PO (13:07)
[2019-08-06] MEDS: levETIRAcetam 250 MG TABLET PO ×2 (13:31→20:39)
[2019-08-06 14:00] VITALS: BP 111/58; PULSE 75; RESP 19; TEMP 36.2; O2SAT 92
--- NOTE | 2019-08-06 16:22 | PCSTNOTE ---
Speech Therapist spoke with about patient's diet level. It was this therapist understanding that patient was on Level 6, Soft and Bite-Sized over the weekend however on Sunday both and CAR DRIVER voiced concern that patient was at aspiration risk due to difficulty chewing soft and bite-sized pieces of food and it was requested he be down-graded to Level 5, Minced and Moist. Therapist assessed Level 5 on Sunday at lunch and diet was changed to Level 5 after this meal. Today Sunday, offered to bring patient a [employer] sandwich at lunch time (obviously not on a Level 5 diet). Therapist instructed to cut meat into very small pieces and eat from fork and use mayonnaise or other condiment to create a moist meal. She voiced understanding. She told me later that she cut the meat into small pieces and did not offer bread and patient was able to handle to sandwich. Additionally she informed me that the Level 5 diet has very few choices and she wants him to return to a Level 6 diet to increase his choices. This therapist instructed the a) the patient's diet has zig-zagged from 6 to 5 and she wants to return it to 6 and that we cannot change his diet daily to accommodate his tastes, and b) our priority is his safety, that he needs to be on a diet level that will be safe whether she is present or not (because she states she will be here for each lunch and supper to modify the Level 6 as needed. Therapist has spoken to Kirsten, Structural Ironworker, that I did tell the that he needs to be on Level 5 at least until Sunday when he may be reassessed and up-graded. She stated that she would also speak with his nurse to reinforce this. This therapist has concerns that if placed on Level 6 and family not present, patient may impulsively, or due to visual neglect, take too large a bite and have great difficulty masticating and swallowing it.
[2019-08-06 17:33] LABS: Glucose Point of Care 88 (65-105)
[2019-08-06] MEDS: PREGABALIN 75 MG CAPSULE 150 MG PO (20:34)
[2019-08-06 20:37] VITALS: PULSE 80
[2019-08-06] MEDS: busPIRone HCL 5 MG TABLET PO (20:38)
[2019-08-06] MEDS: ATORVASTATIN 40 MG TABLET 80 MG PO (20:38)
[2019-08-06] MEDS: FENOFIBRATE 160 MG TABLET PO (20:39)
[2019-08-06] MEDS: SERTRALINE HCL 50 MG TABLET PO (20:41)
[2019-08-06 22:00] VITALS: BP 113/66; PULSE 74; RESP 18; TEMP 37.7; O2SAT 96
[2019-08-06 22:16] LABS: Glucose Point of Care 90 (65-105)
[2019-08-07] MEDS: AZELASTINE HCL NASAL 0.1% 137 MCG/SPR 30 ML BTL 1 SPRAY NASAL ×2 (05:23→17:18)
[2019-08-07 06:00] VITALS: BP 148/80; PULSE 73; RESP 18; TEMP 36.3; O2SAT 93
[2019-08-07 06:19] LABS: Glucose Point of Care 121 (65-105)
[2019-08-07 08:20] VITALS: PULSE 73
[2019-08-07] MEDS: SOTALOL HCL 40 MG, SOTALOL HCL 80 MG 120 MG PO ×2 (08:20→21:01)
[2019-08-07] MEDS: OMEGA 3 POLYUNSAT FATTY ACIDS 1 GM CAP 2 GM PO (08:20)
[2019-08-07] MEDS: FLUTICASONE PROPIONATE 0.05% NA SPR 16 GM BTL (*BKC) 1 SPRAY NASAL (08:20)
[2019-08-07] MEDS: OXcarbazepine 150 MG TABLET 300 MG PO ×2 (08:20→17:18)
[2019-08-07] MEDS: SERTRALINE HCL 25 MG TABLET PO (08:21)
[2019-08-07] MEDS: levETIRAcetam 250 MG TABLET PO ×2 (08:21→20:56)
[2019-08-07] MEDS: PHENAZOPYRIDINE HCL 100 MG TABLET 200 MG PO ×3 (08:21→17:18)
[2019-08-07] MEDS: PANTOPRAZOLE 40 MG TABLET PO (08:21)
[2019-08-07] MEDS: hydroCHLOROthiazide 25 MG TABLET PO (08:21)
[2019-08-07] MEDS: LIPASE/AMYLASE/PROTEASE 12,000 UNITS CAP 2 CAP PO (08:21)
[2019-08-07] MEDS: TAMSULOSIN HCL 0.4 MG CAPSULE PO ×2 (08:22→17:18)
[2019-08-07] MEDS: LOSARTAN POTASSIUM 100 MG TABLET PO (08:22)
[2019-08-07] MEDS: AMLODIPINE BESYLATE 5 MG TABLET PO (08:22)
[2019-08-07] MEDS: INSULIN DETEMIR 100 UNITS/ML 25 UNITS SUB-Q (08:25)
[2019-08-07] MEDS: polyethylene glycoL 3350 17 GM POWD.PACK PO (08:25)
[2019-08-07] MEDS: INSULIN ASPART (*BKC) 100 UNITS/ML 20 UNITS SUB-Q (08:28)
[2019-08-07 11:45] LABS: Glucose Point of Care 99 (65-105)
--- NOTE | 2019-08-07 12:08 | WPDNEURORHBP ---
Subjective Date/time seen: 08/07/19 12:08 Interval history: this 59-year-old here is on the acute rehab floor after having had right-sided intracerebral hemorrhage which has left him with left-sided neglect moderately severe left-sided hemiparesis with underlying hearing loss and decreased visual acuity bilaterally right more so than the left The patient is Accu-Cheks are relatively low so we will hold his noon dose of insulin and monitor closely and adjust the insulin accordingly he denies any headache nausea vomiting abdominal pain diarrhea fever chills sore throat Review of Systems Review of Systems: All systems reviewed & are unremarkable except as noted in HPI and below Functional Status Ambulation Ability Ability to Ambulate 10 Feet: Standby Assistance Ability to Ambulate 50 Feet With 2 Turns: Standby Assistance Ability to Ambulate 150 Feet: Standby Assistance Ambulation Assistive Devices: Cane Transfers Ability Ability to Transfer In/Out of Chair: Standby Assistance Exam Const: General: comfortable and no acute distress HENMT: General nose exam: Normal nares present Mouth: Yes moist mucous membranes Other: significant hearing loss Eyes: General: appearance normal, both eyes and all related structures Other: decreased visual acuity bilaterally related to most likely diabetic retinopathy and also cataract right more than left Neck: Neck: supple and no JVD Resp: Effort & Inspection: normal respiratory effort Auscultation: clear to auscultation bilaterally Cardio: Rate: regular rate Rhythm: regular rhythm GI: GI Palp: Yes Soft to palpation Auscultation: normal bowel sounds Skin: General skin exam: normal color and no rashes or lesions noted Neuro: Other: patient is awake and alert well oriented x4 follows all commands does have left-sided neglect left-sided moderately severe hemiparesis and decreased visual acuity bilaterally needing assistance in the all the activities of daily living Extrem: General: normal to inspection Objective Data Vital Signs Vital Signs: Vital Signs - 24 hr 08/06/19 14:00 08/06/19 20:37 08/06/19 22:00 Temperature 36.2 C L 37.7 C H Pulse Rate 75 80 74 Respiratory Rate 19 18 Blood Pressure 111/58 L 113/66 Pulse Oximetry 92 96 08/07/19 06:00 08/07/19 08:20 Temperature 36.3 C L Pulse Rate 73 73 Respiratory Rate 18 Blood Pressure 148/80 H Pulse Oximetry 93 Intake/Output Intake/Output: Intake & Output 08/04/19 08/05/19 08/06/19 08/07/19 23:59 23:59 23:59 23:59 Intake Total 9956 502 8126 360 Output Total 2577 410 8361 1200 Balance 692 -41 -846 -201 Meds/Results Medications: Active Medications Generic Name Dose Route Start Last Admin Trade Name Freq PRN Reason Stop Dose Admin Acetaminophen 1,000 mg 07/31/19 20:55 08/06/19 13:07 Tylenol Tablet PO 1,000 mg Q6H PRN Administration Mild Pain (1-3) or Fever Acetaminophen/Codeine Phosphate 2 tab 07/31/19 20:35 08/07/19 08:22 Tylenol #3 PO 2 tab Q6H PRN Administration Pain Rated 4-6 Albuterol 2 puff 08/02/19 14:43 Proventil Hfa INHALATION QIDRT PRN Shortness Of Breath Amlodipine Besylate 5 mg 08/01/19 09:00 08/07/19 08:22 Norvasc PO 5 mg DAILY ROLANDA Administration Lipase/Protease/Amylase 2 cap 08/01/19 09:00 08/07/19 08:[address] 12,000 Units Capsule PO 08/31/19 09:01 2 cap DAILY ROLANDA Administration Atorvastatin Calcium 80 mg 07/31/19 21:00 08/06/19 20:38 Lipitor PO 80 mg HS ROLANDA Administration Azelastine HCl 1 spray 07/31/19 18:00 08/07/19 05:23 Astelin NASAL 1 spray Q12H ROLANDA Administration Buspirone HCl 5 mg 08/01/19 21:00 08/06/19 20:38 Buspar PO 5 mg HS ROLANDA Administration Dextrose 12.5 gm 07/31/19 18:00 Dextrose 50% Syringe IV PUSH PRN PRN Hypoglycemia Protocol Fenofibrate 160 mg 07/31/19 21:00 08/06/19 20:39 Fenofibrate PO 160 mg HS ROLANDA Administration Fi
--- NOTE | 2019-08-07 13:01 | PCDIET ---
Addendum entered by Kirsten Dee RD, LDN 08/07/19 13:03: Patient also with texture modification: minced and moist, level 5. Original Note: Nutrition Follow-Up Complete: Nutrition Diagnosis: Decreased fat/cholesterol/sodium needs related to cardiovascular disease as evidenced by stroke, CAD, HTN. Nutrition Goal: Patient to consume 75% or more of meals Goal met. Average intake was 83% of meals from 08/05/19 to present. Patient requesting Glucerna Shake (220kcal, 10g protein) which would be acceptable, given glucose control. Recommend adding heart healthy component to current diabetic diet. Last recorded weight is 86.1 kg. Recommend obtaining new weight. Bowel Motility: +BM on 08/06/19. Labs Reviewed: Glu (99) Meds Noted: Albuterol, Hydrochlorothiazide, Novolog, Creon, Levemir, Miralax, Protonix, Reglan Additional Notes: No skin breakdown documented. Will continue to monitor with same goal. Nutrition Monitoring and Evaluation: Follow up in 7 days.
[2019-08-07 14:00] VITALS: BP 106/60; PULSE 74; RESP 17; TEMP 36.3; O2SAT 92
[2019-08-07 16:57] LABS: Glucose Point of Care 108 (65-105)
--- NOTE | 2019-08-07 19:14 | PC.NURSE ---
pt noon and supper accuchecks were decreased. pt due for schedule novolog [address] Sparrow insulin was held at these times. Pt had not voided. bladder scan completed showing [address] sparrow requested pt be straightcathed and got [address] Sparrow stated we can let him try a while longer to urinate on his own. If he is unable to void on his own later on the acharya will have to be reinserted. Dr Sparrow also gave orders to change levemir to 10 units q 12 hours and novolog 10 units with meals. will continue to monitor.
[2019-08-07] MEDS: ATORVASTATIN 40 MG TABLET 80 MG PO (20:57)
[2019-08-07] MEDS: busPIRone HCL 5 MG TABLET PO (20:57)
[2019-08-07] MEDS: FENOFIBRATE 160 MG TABLET PO (20:58)
[2019-08-07 21:01] VITALS: PULSE 80
[2019-08-07] MEDS: PREGABALIN 75 MG CAPSULE 150 MG PO (21:07)
[2019-08-07] MEDS: INSULIN DETEMIR 100 UNITS/ML 10 UNITS SUB-Q (21:08)
[2019-08-07 21:12] LABS: Glucose Point of Care 140 (65-105)
[2019-08-07] MEDS: SERTRALINE HCL 50 MG TABLET PO (21:44)
[2019-08-07] MEDS: TIZANIDINE HCL 2 MG TABLET PO (21:48)
[2019-08-07] MEDS: TRAMADOL HCL 50 MG TABLET PO (21:50)
[2019-08-07 22:00] VITALS: BP 101/60; PULSE 77; RESP 18; TEMP 36.2; O2SAT 90
[2019-08-08 04:54] LABS: Basophils Absolute Auto 0.1 K/mm3 (0.0-0.1); Basophils Percent Auto 0.8 % (0.2-1.2); Eosinophils Absolute Auto 0.4 K/mm3 (0-0.3); Hematocrit 29.6 % (42.0-52.0); Hemoglobin 9.1 g/dL (14.0-18.0); Immature Granulocyte Percent A 1.6 % (0-0.5); Lymphocytes Absolute Auto 1.44 K/mm3 (0.9-3.2); Mean Corpuscular HGB Conc 30.7 g/dl (32-36); Mean Corpuscular Hemoglobin 27.6 pg (26-34); Mean Corpuscular Volume 89.7 fl (80-100); Mean Platelet Volume 9.3 fl (7.4-10.4); Monocytes Absolute Auto 0.8 K/mm3 (0.1-0.6); Monocytes Percent Auto 13.4 % (2.6-8.5); Neutrophils Absolute Auto 3.4 K/mm3 (1.3-6.7); Neutrophils Percent Auto 54.2 % (45.5-73.1); Platelet Count Result 246 k/mm3 (150-375); Red Cell Distribution Width 15.1 % (11.5-14.5); White Blood Count 6.3 K/mm3 (4.5-10.0)
[2019-08-08 05:20] LABS: Blood Urea Nitrogen 42 mg/dL (9-20); Calcium 8.7 mg/dL (8.4-10.2); Carbon Dioxide 35 mmol/L (22-30); Chloride 97 mmol/L (98-107); Estimated CRCL calculation 47 ml/min; Estimated Glomerular Filt Rate 48; Glucose 117 mg/dL (75-110); Potassium 3.9 mmol/L (3.4-5.0); Sodium 139 mmol/L (137-145)
[2019-08-08] MEDS: AZELASTINE HCL NASAL 0.1% 137 MCG/SPR 30 ML BTL 1 SPRAY NASAL ×2 (05:52→17:29)
[2019-08-08 06:00] VITALS: BP 133/84; PULSE 75; RESP 18; TEMP 36.2; O2SAT 94
[2019-08-08 07:14] LABS: Glucose Point of Care 136 (65-105)
[2019-08-08] MEDS: INSULIN ASPART (*BKC) 100 UNITS/ML 10 UNITS SUB-Q ×3 (07:52→17:29)
[2019-08-08 08:20] VITALS: PULSE 75
[2019-08-08] MEDS: FLUTICASONE PROPIONATE 0.05% NA SPR 16 GM BTL (*BKC) 1 SPRAY NASAL (08:20)
[2019-08-08] MEDS: SOTALOL HCL 40 MG, SOTALOL HCL 80 MG 120 MG PO ×2 (08:20→21:58)
[2019-08-08] MEDS: polyethylene glycoL 3350 17 GM POWD.PACK PO (08:20)
[2019-08-08] MEDS: levETIRAcetam 250 MG TABLET PO ×2 (08:21→21:57)
[2019-08-08] MEDS: LIPASE/AMYLASE/PROTEASE 12,000 UNITS CAP 2 CAP PO (08:21)
[2019-08-08] MEDS: LOSARTAN POTASSIUM 100 MG TABLET PO (08:21)
[2019-08-08] MEDS: OMEGA 3 POLYUNSAT FATTY ACIDS 1 GM CAP 2 GM PO (08:21)
[2019-08-08] MEDS: hydroCHLOROthiazide 25 MG TABLET PO (08:21)
[2019-08-08] MEDS: AMLODIPINE BESYLATE 5 MG TABLET PO (08:22)
[2019-08-08] MEDS: TAMSULOSIN HCL 0.4 MG CAPSULE PO ×2 (08:22→17:28)
[2019-08-08] MEDS: PANTOPRAZOLE 40 MG TABLET PO (08:22)
[2019-08-08] MEDS: PHENAZOPYRIDINE HCL 100 MG TABLET 200 MG PO ×3 (08:22→17:29)
[2019-08-08] MEDS: OXcarbazepine 150 MG TABLET 300 MG PO ×2 (08:22→17:29)
[2019-08-08] MEDS: SERTRALINE HCL 25 MG TABLET PO (08:22)
[2019-08-08] MEDS: INSULIN DETEMIR 100 UNITS/ML 10 UNITS SUB-Q ×2 (08:23→22:04)
[2019-08-08 11:54] LABS: Glucose Point of Care 130 (65-105)
[2019-08-08 14:00] VITALS: BP 128/67; PULSE 79; RESP 18; TEMP 36.8; O2SAT 93
--- NOTE | 2019-08-08 14:56 | WPDNEURORHBP ---
Subjective Date/time seen: 08/08/19 14:56 Interval history: this 59-year-old diabetic white male who has diabetic neuropathy diabetic retinopathy and suffered from a stroke of right cerebral hemisphere which has left him with the left-sided hemiparesis and double vision and he has to patch his eyes to see from 1 eye or the other more over he has the decreased visual acuity right more than the left to diabetic retinopathy and also hard of hearing which makes it difficult for him to engage in therapy on the other hand he is depressed and needs adjustment in his anti depressant medication He denies any headache nausea vomiting chest pain or shortness of breath or any new neurological symptoms however his creatinine has risen up to 1.5 which could be due to drug effect or most likely that he is not drinking and eating enough Review of Systems Review of Systems: All systems reviewed & are unremarkable except as noted in HPI and below Functional Status Ambulation Ability Ability to Ambulate 10 Feet: Standby Assistance Ability to Ambulate 50 Feet With 2 Turns: Standby Assistance Ability to Ambulate 150 Feet: Standby Assistance Ambulation Assistive Devices: Cane Transfers Ability Ability to Transfer In/Out of Chair: Standby Assistance Exam Const: General: comfortable and no acute distress HENMT: General nose exam: Normal nares present Mouth: Yes moist mucous membranes Eyes: Other: decreased visual acuity bilaterally right more than left with the evidence of diabetic retinopathy Neck: Neck: supple and no JVD Resp: Effort & Inspection: normal respiratory effort Auscultation: clear to auscultation bilaterally Cardio: Rate: regular rate Rhythm: regular rhythm GI: GI Palp: Yes Soft to palpation Auscultation: normal bowel sounds Urinary Catheter: Urinary Catheter: patent and draining and other ( he was unable to void and we have to put the Clarke back) Skin: General skin exam: normal color and no rashes or lesions noted Neuro: Other: patient is awake and alert looks depressed is not eating much left-sided hemiparesis and also neglect and visual field defect is slowly improving however not to his satisfaction or his Extrem: General: normal to inspection Psych: Other: patient is depressed but not suicidal or hostile Objective Data Vital Signs Vital Signs: Vital Signs - 24 hr 08/07/19 21:01 08/07/19 22:00 08/08/19 06:00 Temperature 36.2 C L 36.2 C L Pulse Rate 80 77 75 Respiratory Rate 18 18 Blood Pressure 101/60 133/84 Pulse Oximetry 90 94 08/08/19 08:20 Temperature Pulse Rate 75 Respiratory Rate Blood Pressure Pulse Oximetry Intake/Output Intake/Output: Intake & Output 08/05/19 08/06/19 08/07/19 08/08/19 23:59 23:59 23:59 23:59 Intake Total 840 1340 1260 600 Output Total 850 1900 2100 [facility] -07 -034 -024 600 Meds/Results Medications: Active Medications Generic Name Dose Route Start Last Admin Trade Name Freq PRN Reason Stop Dose Admin Acetaminophen 1,000 mg 07/31/19 20:55 08/06/19 13:07 Tylenol Tablet PO 1,000 mg Q6H PRN Administration Mild Pain (1-3) or Fever Acetaminophen/Codeine Phosphate 2 tab 07/31/19 20:35 08/07/19 18:23 Tylenol #3 PO 2 tab Q6H PRN Administration Pain Rated 4-6 Albuterol 2 puff 08/02/19 14:43 Proventil Hfa INHALATION QIDRT PRN Shortness Of Breath Amlodipine Besylate 5 mg 08/01/19 09:00 08/08/19 08:22 Norvasc PO 5 mg DAILY ROLANDA Administration Lipase/Protease/Amylase 2 cap 08/01/19 09:00 08/08/19 08:[address] 12,000 Units Capsule PO 08/31/19 09:01 2 cap DAILY ROLANDA Administration Atorvastatin Calcium 80 mg 07/31/19 21:00 08/07/19 20:57 Lipitor PO 80 mg HS ROLANDA Administration Azelastine HCl 1 spray 07/31/19 18:00 08/08/19 05:52 Astelin NASAL 1 spray Q12H ROLANDA Administration Buspirone HCl 5 mg 08/01/19 21:00 08/07/19 20:57 Buspar PO 5 mg HS ROLANDA Admi
[2019-08-08 16:42] LABS: Glucose Point of Care 132 (65-105)
[2019-08-08] MEDS: PREGABALIN 75 MG CAPSULE 150 MG PO (21:55)
[2019-08-08] MEDS: busPIRone HCL 5 MG TABLET PO (21:56)
[2019-08-08] MEDS: ATORVASTATIN 40 MG TABLET 80 MG PO (21:56)
[2019-08-08] MEDS: FENOFIBRATE 160 MG TABLET PO (21:57)
[2019-08-08 21:58] VITALS: PULSE 75
[2019-08-08] MEDS: SERTRALINE HCL 50 MG TABLET PO (21:58)
[2019-08-08 22:00] VITALS: BP 113/58; PULSE 75; RESP 18; TEMP 36.3; O2SAT 98
[2019-08-08 22:16] LABS: Glucose Point of Care 149 (65-105)
[2019-08-09 06:00] VITALS: BP 122/64; PULSE 76; RESP 18; TEMP 36.4; O2SAT 98
[2019-08-09] MEDS: AZELASTINE HCL NASAL 0.1% 137 MCG/SPR 30 ML BTL 1 SPRAY NASAL ×2 (06:46→17:37)
[2019-08-09 07:06] LABS: Glucose Point of Care 126 (65-105)
[2019-08-09] MEDS: INSULIN ASPART (*BKC) 100 UNITS/ML 10 UNITS SUB-Q ×3 (09:34→17:35)
[2019-08-09] MEDS: INSULIN DETEMIR 100 UNITS/ML 10 UNITS SUB-Q ×2 (09:35→20:48)
[2019-08-09] MEDS: PHENAZOPYRIDINE HCL 100 MG TABLET 200 MG PO ×3 (09:36→17:36)
[2019-08-09] MEDS: FLUTICASONE PROPIONATE 0.05% NA SPR 16 GM BTL (*BKC) 1 SPRAY NASAL (09:37)
[2019-08-09] MEDS: AMLODIPINE BESYLATE 5 MG TABLET PO (09:37)
[2019-08-09] MEDS: LIPASE/AMYLASE/PROTEASE 12,000 UNITS CAP 2 CAP PO (09:38)
[2019-08-09] MEDS: levETIRAcetam 250 MG TABLET PO ×2 (09:38→20:20)
[2019-08-09] MEDS: OXcarbazepine 150 MG TABLET 300 MG PO ×2 (09:39→17:36)
[2019-08-09] MEDS: PANTOPRAZOLE 40 MG TABLET PO (09:39)
[2019-08-09] MEDS: OMEGA 3 POLYUNSAT FATTY ACIDS 1 GM CAP 2 GM PO (09:39)
[2019-08-09] MEDS: LOSARTAN POTASSIUM 100 MG TABLET PO (09:39)
[2019-08-09] MEDS: polyethylene glycoL 3350 17 GM POWD.PACK PO (09:40)
[2019-08-09 09:41] VITALS: PULSE 76
[2019-08-09] MEDS: TAMSULOSIN HCL 0.4 MG CAPSULE PO ×2 (09:41→17:37)
[2019-08-09] MEDS: SOTALOL HCL 40 MG, SOTALOL HCL 80 MG 120 MG PO ×2 (09:41→20:20)
[2019-08-09] MEDS: SERTRALINE HCL 50 MG TABLET PO ×2 (10:00→20:20)
[2019-08-09 10:01] VITALS: O2SAT 100
[2019-08-09 12:03] LABS: Glucose Point of Care 211 (65-105)
[2019-08-09 14:00] VITALS: BP 129/69; PULSE 74; RESP 18; TEMP 36.7; O2SAT 94
[2019-08-09 17:18] LABS: Glucose Point of Care 219 (65-105)
[2019-08-09] MEDS: ACETAMINOPHEN 500 MG TABLET 1000 MG PO (17:34)
[2019-08-09] MEDS: ATORVASTATIN 40 MG TABLET 80 MG PO (20:20)
[2019-08-09] MEDS: FENOFIBRATE 160 MG TABLET PO (20:20)
[2019-08-09] MEDS: busPIRone HCL 5 MG TABLET PO (20:20)
[2019-08-09] MEDS: PREGABALIN 75 MG CAPSULE 150 MG PO (20:22)
[2019-08-09 20:44] LABS: Glucose Point of Care 155 (65-105)
[2019-08-09] MEDS: TIZANIDINE HCL 2 MG TABLET PO (21:59)
[2019-08-09 22:00] VITALS: BP 125/63; PULSE 74; RESP 18; TEMP 36.3; O2SAT 91
[2019-08-10] MEDS: AZELASTINE HCL NASAL 0.1% 137 MCG/SPR 30 ML BTL 1 SPRAY NASAL ×2 (05:54→17:47)
[2019-08-10 06:00] VITALS: BP 154/82; PULSE 76; RESP 18; TEMP 36.3; O2SAT 95
[2019-08-10 07:04] LABS: Glucose Point of Care 146 (65-105)
[2019-08-10] MEDS: INSULIN ASPART (*BKC) 100 UNITS/ML 10 UNITS SUB-Q ×3 (08:41→17:46)
[2019-08-10] MEDS: INSULIN DETEMIR 100 UNITS/ML 10 UNITS SUB-Q ×2 (08:42→20:17)
[2019-08-10] MEDS: FLUTICASONE PROPIONATE 0.05% NA SPR 16 GM BTL (*BKC) 1 SPRAY NASAL (08:42)
[2019-08-10] MEDS: AMLODIPINE BESYLATE 5 MG TABLET PO (08:44)
[2019-08-10] MEDS: PHENAZOPYRIDINE HCL 100 MG TABLET 200 MG PO ×3 (08:44→17:47)
[2019-08-10] MEDS: levETIRAcetam 250 MG TABLET PO ×2 (08:45→20:10)
[2019-08-10] MEDS: LIPASE/AMYLASE/PROTEASE 12,000 UNITS CAP 2 CAP PO (08:45)
[2019-08-10] MEDS: PANTOPRAZOLE 40 MG TABLET PO (08:46)
[2019-08-10] MEDS: LOSARTAN POTASSIUM 100 MG TABLET PO (08:46)
[2019-08-10] MEDS: OXcarbazepine 150 MG TABLET 300 MG PO ×2 (08:46→17:47)
[2019-08-10] MEDS: polyethylene glycoL 3350 17 GM POWD.PACK PO (08:46)
[2019-08-10] MEDS: OMEGA 3 POLYUNSAT FATTY ACIDS 1 GM CAP 2 GM PO (08:46)
[2019-08-10 08:47] VITALS: PULSE 76
[2019-08-10] MEDS: SOTALOL HCL 40 MG, SOTALOL HCL 80 MG 120 MG PO ×2 (08:47→20:07)
[2019-08-10] MEDS: SERTRALINE HCL 50 MG TABLET PO ×2 (08:47→20:10)
[2019-08-10] MEDS: TAMSULOSIN HCL 0.4 MG CAPSULE PO ×2 (08:47→17:48)
[2019-08-10] MEDS: ACETAMINOPHEN 500 MG TABLET 1000 MG PO ×2 (09:40→20:06)
[2019-08-10 11:45] LABS: Glucose Point of Care 197 (65-105)
[2019-08-10 14:00] VITALS: BP 101/57; PULSE 76; RESP 20; TEMP 36.3; O2SAT 100
--- NOTE | 2019-08-10 14:03 | WPDNEURORHBP ---
Subjective Date/time seen: 08/10/19 14:03 Review of Systems Review of Systems: Narrative: continues to have multiple problems as outlined before and is putting efforts to improve himself All systems reviewed & are unremarkable except as noted in HPI and below Functional Status Ambulation Ability Ability to Ambulate 10 Feet: Standby Assistance Ability to Ambulate 50 Feet With 2 Turns: Standby Assistance Ability to Ambulate 150 Feet: Standby Assistance Ambulation Assistive Devices: Cane Transfers Ability Ability to Transfer In/Out of Chair: Standby Assistance Exam Const: General: cooperative Eyes: General: appearance normal, both eyes and all related structures Alignment and Position: alignment normal (abnormal) Conjunctivae: conjunctivae normal Cornea: corneas normal Pupils: Equal, round and reactive pupils present EOM: EOM abnormal Chest: Chest palpation & inspection: normal inspection of the chest Resp: Auscultation: clear to auscultation bilaterally GI: Auscultation: normal bowel sounds Skin: General skin exam: no rashes or lesions noted Neuro: General: oriented to person Cranial nerves: Yes Midline tongue present, Yes Normal gag reflex present, Yes Symmetric palate elevation present and Yes Ability to bilaterally rotate head present Cognition (Neuro): normal cognition Gait exam (Neuro): Normal gait present (abnormal) and Unable to assess gait Motor exam (neuro): 5/5 motor strength present throughout (left hemiparesis) Sensory Exam: Sensory deficit (Neuro) (distally) Deep tendon reflexes (DTR's): Right triceps reflex intensity grade: 1+, Left triceps reflex intensity grade: 2+, Rt Biceps (C5, C6): 1+, Left biceps reflex intensity grade: 2+, Right brachioradialis reflex intensity grade: 1+, Left brachioradialis reflex intensity grade: 2+, Right patellar reflex intensity grade: 1+, Left patellar reflex intensity grade: 2+, Right ankle reflex intensity grade: 1+ and Left ankle reflex intensity grade: 2+ Plantar Reflex Responses: downgoing: right and upgoing (positive Babinski): left Objective Data Vital Signs Vital Signs: Vital Signs - 24 hr 08/09/19 22:00 08/10/19 06:00 08/10/19 08:47 Temperature 36.3 C L 36.3 C L Pulse Rate 74 76 76 Respiratory Rate 18 18 Blood Pressure 125/63 154/82 H Pulse Oximetry 91 95 Intake/Output Intake/Output: Intake & Output 08/07/19 08/08/19 08/09/19 08/10/19 23:59 23:59 23:59 23:59 Intake Total 1260 9180 445 6268 Output Total 2100 775 2300 1000 Balance -840 665 -1380 80 Meds/Results Medications: Active Medications Generic Name Dose Route Start Last Admin Trade Name Freq PRN Reason Stop Dose Admin Acetaminophen 1,000 mg 07/31/19 20:55 08/10/19 09:40 Tylenol Tablet PO 1,000 mg Q6H PRN Administration Mild Pain (1-3) or Fever Acetaminophen/Codeine Phosphate 2 tab 08/10/19 12:43 Tylenol #3 PO Q6H PRN Pain Rated 4-6 Albuterol 2 puff 08/02/19 14:43 Proventil Hfa INHALATION QIDRT PRN Shortness Of Breath Amlodipine Besylate 5 mg 08/01/19 09:00 08/10/19 08:44 Norvasc PO 5 mg DAILY ROLANDA Administration Lipase/Protease/Amylase 2 cap 08/01/19 09:00 08/10/19 08:[address] 12,000 Units Capsule PO 08/31/19 09:01 2 cap DAILY ROLANDA Administration Atorvastatin Calcium 80 mg 07/31/19 21:00 08/09/19 20:20 Lipitor PO 80 mg HS ROLANDA Administration Azelastine HCl 1 spray 07/31/19 18:00 08/10/19 05:54 Astelin NASAL 1 spray Q12H ROLANDA Administration Buspirone HCl 5 mg 08/01/19 21:00 08/09/19 20:20 Buspar PO 5 mg HS ROLANDA Administration Dextrose 12.5 gm 07/31/19 18:00 Dextrose 50% Syringe IV PUSH PRN PRN Hypoglycemia Protocol Fenofibrate 160 mg 07/31/19 21:00 08/09/19 20:20 Fenofibrate PO 160 mg HS ROLANDA Administration Fish Oil 2 gm 08/01/19 09:00 08/10/19 08:46 Lovaza PO 2 gm DAILY ROLANDA Administration Fluticasone Propionate 1 spray
[2019-08-10 17:38] LABS: Glucose Point of Care 173 (65-105)
[2019-08-10 20:07] VITALS: PULSE 80
[2019-08-10] MEDS: TIZANIDINE HCL 2 MG TABLET PO (20:07)
[2019-08-10] MEDS: FENOFIBRATE 160 MG TABLET PO (20:11)
[2019-08-10] MEDS: ATORVASTATIN 40 MG TABLET 80 MG PO (20:11)
[2019-08-10] MEDS: busPIRone HCL 5 MG TABLET PO (20:11)
[2019-08-10] MEDS: PREGABALIN 75 MG CAPSULE 150 MG PO (20:13)
[2019-08-10 21:18] LABS: Glucose Point of Care 132 (65-105)
[2019-08-10 21:49] VITALS: BP 124/66; PULSE 68; RESP 16; TEMP 36.6; O2SAT 96
[2019-08-11 05:24] LABS: Blood Urea Nitrogen 27 mg/dL (9-20); Calcium 8.5 mg/dL (8.4-10.2); Carbon Dioxide 32 mmol/L (22-30); Chloride 105 mmol/L (98-107); Estimated CRCL calculation 63 ml/min; Estimated Glomerular Filt Rate > 60; Glucose 106 mg/dL (75-110); Sodium 139 mmol/L (137-145)
[2019-08-11] MEDS: AZELASTINE HCL NASAL 0.1% 137 MCG/SPR 30 ML BTL 1 SPRAY NASAL ×2 (05:28→17:04)
[2019-08-11 06:00] VITALS: BP 152/77; PULSE 72; RESP 18; TEMP 35.9; O2SAT 95
[2019-08-11 06:56] LABS: Glucose Point of Care 125 (65-105)
[2019-08-11] MEDS: INSULIN ASPART (*BKC) 100 UNITS/ML 10 UNITS SUB-Q ×3 (07:41→17:04)
[2019-08-11] MEDS: FLUTICASONE PROPIONATE 0.05% NA SPR 16 GM BTL (*BKC) 1 SPRAY NASAL (08:35)
[2019-08-11] MEDS: OXcarbazepine 150 MG TABLET 300 MG PO ×2 (08:36→17:06)
[2019-08-11] MEDS: PANTOPRAZOLE 40 MG TABLET PO (08:36)
[2019-08-11] MEDS: SERTRALINE HCL 50 MG TABLET PO ×2 (08:36→20:40)
[2019-08-11] MEDS: levETIRAcetam 250 MG TABLET PO ×2 (08:36→20:38)
[2019-08-11] MEDS: LOSARTAN POTASSIUM 100 MG TABLET PO (08:36)
[2019-08-11] MEDS: OMEGA 3 POLYUNSAT FATTY ACIDS 1 GM CAP 2 GM PO (08:36)
[2019-08-11] MEDS: TAMSULOSIN HCL 0.4 MG CAPSULE PO ×2 (08:36→17:06)
[2019-08-11] MEDS: PHENAZOPYRIDINE HCL 100 MG TABLET 200 MG PO ×3 (08:36→17:05)
[2019-08-11] MEDS: AMLODIPINE BESYLATE 5 MG TABLET PO (08:36)
[2019-08-11] MEDS: LIPASE/AMYLASE/PROTEASE 12,000 UNITS CAP 2 CAP PO (08:38)
[2019-08-11] MEDS: INSULIN DETEMIR 100 UNITS/ML 10 UNITS SUB-Q ×2 (08:39→20:43)
[2019-08-11 08:40] VITALS: PULSE 74
[2019-08-11] MEDS: SOTALOL HCL 40 MG TABLET 120 MG PO (08:40)
--- NOTE | 2019-08-11 08:46 | PC.NURSE ---
pt refused due to having frequent stools yesterday. updated.
[2019-08-11 10:00] VITALS: O2SAT 90
[2019-08-11 12:11] LABS: Glucose Point of Care 154 (65-105)
[2019-08-11] MEDS: CARBAMAZEPINE 100 MG CHEW PO ×2 (13:32→20:41)
[2019-08-11 14:00] VITALS: BP 96/52; PULSE 78; RESP 18; TEMP 36.5; O2SAT 97
--- NOTE | 2019-08-11 14:20 | PCSTNOTE ---
Patient was able to tolerate solids without pocketing or difficulty masticating. Patient is anxious to upgrade to regular solids and denies any further difficulty. Would recommend diet upgrade to regular solids.
[2019-08-11 16:52] LABS: Glucose Point of Care 121 (65-105)
[2019-08-11] MEDS: ATORVASTATIN 40 MG TABLET 80 MG PO (20:36)
[2019-08-11] MEDS: busPIRone HCL 5 MG TABLET PO (20:37)
[2019-08-11] MEDS: FENOFIBRATE 160 MG TABLET PO (20:38)
[2019-08-11] MEDS: MELATONIN 5 MG TABLET PO (20:39)
[2019-08-11] MEDS: PREGABALIN 75 MG CAPSULE 150 MG PO (20:40)
[2019-08-11 21:17] LABS: Glucose Point of Care 159 (65-105)
[2019-08-11 22:00] VITALS: BP 151/75; PULSE 73; RESP 18; TEMP 36.4; O2SAT 95
[2019-08-11] MEDS: TIZANIDINE HCL 2 MG TABLET PO (22:39)
[2019-08-12 01:06] LABS: Glucose Point of Care 130 (65-105)
[2019-08-12 06:00] VITALS: BP 136/70; PULSE 70; RESP 18; TEMP 36.3; O2SAT 97
[2019-08-12] MEDS: AZELASTINE HCL NASAL 0.1% 137 MCG/SPR 30 ML BTL 1 SPRAY NASAL ×2 (06:20→17:21)
[2019-08-12] MEDS: CARBAMAZEPINE 100 MG CHEW PO ×3 (06:21→20:24)
[2019-08-12 07:19] LABS: Glucose Point of Care 150 (65-105)
[2019-08-12] MEDS: PHENAZOPYRIDINE HCL 100 MG TABLET 200 MG PO ×3 (07:46→17:21)
[2019-08-12] MEDS: OXcarbazepine 150 MG TABLET 300 MG PO ×2 (07:46→17:22)
[2019-08-12] MEDS: TAMSULOSIN HCL 0.4 MG CAPSULE PO ×2 (07:46→17:21)
[2019-08-12] MEDS: PANTOPRAZOLE 40 MG TABLET PO (07:46)
[2019-08-12] MEDS: SERTRALINE HCL 50 MG TABLET PO ×2 (07:46→20:27)
[2019-08-12] MEDS: LOSARTAN POTASSIUM 100 MG TABLET PO (07:47)
[2019-08-12] MEDS: OMEGA 3 POLYUNSAT FATTY ACIDS 1 GM CAP 2 GM PO (07:47)
[2019-08-12] MEDS: AMLODIPINE BESYLATE 5 MG TABLET PO (07:47)
[2019-08-12] MEDS: levETIRAcetam 250 MG TABLET PO ×2 (07:48→20:26)
[2019-08-12] MEDS: FLUTICASONE PROPIONATE 0.05% NA SPR 16 GM BTL (*BKC) 1 SPRAY NASAL (07:48)
[2019-08-12] MEDS: LIPASE/AMYLASE/PROTEASE 12,000 UNITS CAP 2 CAP PO (07:49)
[2019-08-12] MEDS: INSULIN ASPART (*BKC) 100 UNITS/ML 10 UNITS SUB-Q ×3 (07:49→17:19)
[2019-08-12] MEDS: INSULIN DETEMIR 100 UNITS/ML 10 UNITS SUB-Q ×2 (07:50→21:15)
[2019-08-12 10:19] VITALS: PULSE 70
[2019-08-12] MEDS: SOTALOL HCL 40 MG, SOTALOL HCL 80 MG 120 MG PO ×2 (10:19→20:24)
[2019-08-12 12:13] LABS: Glucose Point of Care 162 (65-105)
--- NOTE | 2019-08-12 12:57 | WPDNEURORHBP ---
Subjective Date/time seen: 08/12/19 12:57 Interval history: this 59-year-old white male is here after having a stroke which has left him with left-sided hemiparesis left-sided visual field defect and left-sided hemiparesis however he has improved to a point that he will be able to be discharged tomorrow no particular complains were raised is able to walk 300 feet he failed however the bladder training and the Clarke had to be put back and for that he will need to be followed up with the urologist No headache nausea vomiting chest pain shortness of breath fever chills sore throat Review of Systems Review of Systems: All systems reviewed & are unremarkable except as noted in HPI and below Functional Status Ambulation Ability Ability to Ambulate 10 Feet: Standby Assistance Ability to Ambulate 50 Feet With 2 Turns: Standby Assistance Ability to Ambulate 150 Feet: Standby Assistance Ambulation Assistive Devices: Cane Transfers Ability Ability to Transfer In/Out of Chair: Standby Assistance Exam Const: General: comfortable and no acute distress HENMT: General nose exam: Normal nares present Mouth: Yes moist mucous membranes Eyes: General: appearance normal, both eyes and all related structures Other: evidence of bilateral diabetic retinopathy remains stable with decreased vision right more than the left Neck: Neck: supple and no JVD Resp: Effort & Inspection: normal respiratory effort Auscultation: clear to auscultation bilaterally Cardio: Rate: regular rate Rhythm: regular rhythm GI: GI Palp: Yes Soft to palpation Auscultation: normal bowel sounds Urinary Catheter: Urinary Catheter: patent and draining Skin: General skin exam: normal color and no rashes or lesions noted Neuro: Other: apart from significantly hard of hearing the patient is awake and alert well oriented in time place and person with left-sided neglect and left-sided visual field defect and left hemiparesis all of them which have significantly improved Extrem: General: normal to inspection Objective Data Vital Signs Vital Signs: Vital Signs - 24 hr 08/11/19 14:00 08/11/19 22:00 08/12/19 06:00 Temperature 36.5 C 36.4 C 36.3 C L Pulse Rate 78 73 70 Respiratory Rate 18 18 18 Blood Pressure 96/52 L 151/75 H 136/70 Pulse Oximetry 97 95 97 08/12/19 10:19 Temperature Pulse Rate 70 Respiratory Rate Blood Pressure Pulse Oximetry Intake/Output Intake/Output: Intake & Output 08/09/19 08/10/19 08/11/19 08/12/19 23:59 23:59 23:59 23:59 Intake Total 920 1280 1750 480 Output Total 2300 2150 1200 Balance -1380 -870 550 480 Meds/Results Medications: Active Medications Generic Name Dose Route Start Last Admin Trade Name Freq PRN Reason Stop Dose Admin Acetaminophen 1,000 mg 07/31/19 20:55 08/10/19 20:06 Tylenol Tablet PO 1,000 mg Q6H PRN Administration Mild Pain (1-3) or Fever Acetaminophen/Codeine Phosphate 2 tab 08/10/19 12:43 08/11/19 13:31 Tylenol #3 PO 2 tab Q6H PRN Administration Pain Rated 4-6 Albuterol 2 puff 08/02/19 14:43 Proventil Hfa INHALATION QIDRT PRN Shortness Of Breath Amlodipine Besylate 5 mg 08/01/19 09:00 08/12/19 07:47 Norvasc PO 5 mg DAILY ROLANDA Administration Lipase/Protease/Amylase 2 cap 08/01/19 09:00 08/12/19 07:[address] 12,000 Units Capsule PO 08/31/19 09:01 2 cap DAILY ROLANDA Administration Atorvastatin Calcium 80 mg 07/31/19 21:00 08/11/19 20:36 Lipitor PO 80 mg HS ROLANDA Administration Azelastine HCl 1 spray 07/31/19 18:00 08/12/19 06:20 Astelin NASAL 1 spray Q12H ROLANDA Administration Buspirone HCl 5 mg 08/01/19 21:00 08/11/19 20:37 Buspar PO 5 mg HS ROLANDA Administration Carbamazepine 100 mg 08/11/19 14:00 08/12/19 07:47 Tegretol Chew PO 100 mg Q8HR ROLANDA Administration Dextrose 12.5 gm 07/31/19 18:00 Dextrose 50% Syringe IV PUSH PRN PRN Hypoglycemia Protocol Regina
[2019-08-12 14:00] VITALS: BP 113/46; PULSE 76; RESP 16; TEMP 36.8; O2SAT 94
--- NOTE | 2019-08-12 16:01 | PCCCNOTE ---
On 08/12/19, the student, [Ar Beckman], provided care and completed [facility] documentation on this patient. I have reviewed the student's documentation and agree with the findings.
[2019-08-12 17:15] LABS: Glucose Point of Care 153 (65-105)
--- NOTE | 2019-08-12 18:33 | PC.NURSE ---
patient's spouse was shown how to complete acharya care as well as switching from the leg bag to the larger bag.
[2019-08-12] MEDS: ATORVASTATIN 40 MG TABLET 80 MG PO (20:24)
[2019-08-12] MEDS: MELATONIN 5 MG TABLET PO (20:25)
[2019-08-12] MEDS: busPIRone HCL 5 MG TABLET PO (20:25)
[2019-08-12] MEDS: FENOFIBRATE 160 MG TABLET PO (20:26)
[2019-08-12] MEDS: PREGABALIN 75 MG CAPSULE 150 MG PO (20:31)
[2019-08-12 21:09] LABS: Glucose Point of Care 102 (65-105)
[2019-08-12 22:00] VITALS: BP 142/67; PULSE 73; RESP 17; TEMP 36.7; O2SAT 94
[2019-08-13] MEDS: AZELASTINE HCL NASAL 0.1% 137 MCG/SPR 30 ML BTL 1 SPRAY NASAL (05:36)
[2019-08-13] MEDS: CARBAMAZEPINE 100 MG CHEW PO (05:40)
[2019-08-13 06:00] VITALS: BP 161/78; PULSE 74; RESP 17; TEMP 36.2; O2SAT 94
[2019-08-13 07:08] LABS: Glucose Point of Care 139 (65-105)
--- NOTE | 2019-08-13 09:00 | WPDNEURORHBP ---
Subjective Date/time seen: 08/13/19 09:00 Interval history: this 59-year-old gentleman who was admitted because of stroke [id number] decreased vision has completed over rehab program and ready to be discharged today he does not have any new specific complaints medications have been reconciled he will have follow-up with the Neurology and also the primary care physician Patient denies any headache fever chills sore throat nausea vomiting abdominal pain or diarrhea Review of Systems Review of Systems: All systems reviewed & are unremarkable except as noted in HPI and below Functional Status Ambulation Ability Ability to Ambulate 10 Feet: Independent Ability to Ambulate 50 Feet With 2 Turns: Independent Ability to Ambulate 150 Feet: Independent Ambulation Assistive Devices: Cane Transfers Ability Ability to Transfer In/Out of Chair: Independent Exam Const: General: comfortable and no acute distress HENMT: General nose exam: Normal nares present Mouth: Yes moist mucous membranes Other: decreased hearing Eyes: General: appearance normal, both eyes and all related structures Other: decreased vision bilaterally right more than the left to along with [id number] patient needs to have a follow-up 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 Neck: Neck: supple and no JVD Resp: Effort & Inspection: normal respiratory effort Auscultation: clear to auscultation bilaterally Cardio: Rate: regular rate Rhythm: regular rhythm GI: GI Palp: Yes Soft to palpation Auscultation: normal bowel sounds Urinary Catheter: Urinary Catheter: patent and draining Skin: General skin exam: normal color and no rashes or lesions noted Neuro: Other: patient's left-sided hemiparesis visual field defect and the neglect has improved his visual and hearing issues remained the same as they were before Extrem: General: normal to inspection Psych: Mental Status: mental status grossly normal Objective Data Vital Signs Vital Signs: Vital Signs - 24 hr 08/12/19 10:19 08/12/19 14:00 08/12/19 22:00 Temperature 36.8 C 36.7 C Pulse Rate 70 76 73 Respiratory Rate 16 17 Blood Pressure 113/46 L 142/67 H Pulse Oximetry 94 94 08/13/19 06:00 Temperature 36.2 C L Pulse Rate 74 Respiratory Rate 17 Blood Pressure 161/78 H Pulse Oximetry 94 Intake/Output Intake/Output: Intake & Output 03/01/20 03/02/20 03/03/20 03/04/20 23:59 23:59 23:59 23:59 Intake Total 1280 1750 2080 575 Output Total 2150 1200 1075 625 Balance -692 018 1859 -50 Meds/Results Medications: Active Medications Generic Name Dose Route Start Last Admin Trade Name Freq PRN Reason Stop Dose Admin Acetaminophen 1,000 mg 07/31/19 20:55 08/10/19 20:06 Tylenol Tablet PO 1,000 mg Q6H PRN Administration Mild Pain (1-3) or Fever Acetaminophen/Codeine Phosphate 2 tab 08/10/19 12:43 08/12/19 18:23 Tylenol #3 PO 2 tab Q6H PRN Administration Pain Rated 4-6 Albuterol 2 puff 08/02/19 14:43 Proventil Hfa INHALATION QIDRT PRN Shortness Of Breath Amlodipine Besylate 5 mg 08/01/19 09:00 08/12/19 07:47 Norvasc PO 5 mg DAILY ROLANDA Administration Lipase/Protease/Amylase 2 cap 08/01/19 09:00 08/12/19 07:[address] 12,000 Units Capsule PO 08/31/19 09:01 2 cap DAILY ROLANDA Administration Aspirin 81 mg 08/13/19 08:00 Aspirin Chewable PO DAILY@0800 ROLANDA Atorvastatin Calcium 80 mg 07/31/19 21:00 08/12/19 20:24 Lipitor PO 80 mg HS ROLANDA Administration Azelastine HCl 1 spray 07/31/19 18:00 08/13/19 05:36 Astelin NASAL 1 spray Q12H ROLANDA Administration Buspirone HCl 5 mg 08/01/19 21:00 08/12/19 20:25 Buspar PO 5 mg HS ROLANDA Administration Carbamazepine 100 mg 08/11/19 14:00 08/13/19 05:40 Tegretol Chew PO 100 mg Q8HR ROLANDA Administration Dextrose 12.5 gm 07/31/19 18:00 Dextrose 50% Syringe IV PUSH PRN PRN Hypoglycemia Protocol Fenofibrate 160 mg 07/31/19
[2019-08-13] MEDS: ASPIRIN 81 MG CHEWABLE TABLET PO (09:05)
[2019-08-13] MEDS: PHENAZOPYRIDINE HCL 100 MG TABLET 200 MG PO (09:05)
[2019-08-13] MEDS: AMLODIPINE BESYLATE 5 MG TABLET PO (09:06)
[2019-08-13] MEDS: LIPASE/AMYLASE/PROTEASE 12,000 UNITS CAP 2 CAP PO (09:06)
[2019-08-13] MEDS: FLUTICASONE PROPIONATE 0.05% NA SPR 16 GM BTL (*BKC) 1 SPRAY NASAL (09:06)
[2019-08-13] MEDS: levETIRAcetam 250 MG TABLET PO (09:06)
[2019-08-13] MEDS: LOSARTAN POTASSIUM 100 MG TABLET PO (09:07)
[2019-08-13] MEDS: OMEGA 3 POLYUNSAT FATTY ACIDS 1 GM CAP 2 GM PO (09:08)
[2019-08-13] MEDS: OXcarbazepine 150 MG TABLET 300 MG PO (09:08)
[2019-08-13] MEDS: PANTOPRAZOLE 40 MG TABLET PO (09:09)
[2019-08-13 09:10] VITALS: PULSE 80
[2019-08-13] MEDS: SOTALOL HCL 40 MG, SOTALOL HCL 80 MG 120 MG PO (09:10)
[2019-08-13] MEDS: SERTRALINE HCL 50 MG TABLET PO (09:10)
[2019-08-13] MEDS: TAMSULOSIN HCL 0.4 MG CAPSULE PO (09:11)
[2019-08-13] MEDS: INSULIN DETEMIR 100 UNITS/ML 10 UNITS SUB-Q (09:21)
[2019-08-13] MEDS: INSULIN ASPART (*BKC) 100 UNITS/ML 10 UNITS SUB-Q (09:22)
--- NOTE | 2019-08-18 10:01 | WPDNEURORHBP ---
Subjective Date/time seen: 08/03/19 Review of Systems Review of Systems: All systems reviewed & are unremarkable except as noted in HPI and below Functional Status Ambulation Ability Ability to Ambulate 10 Feet: Independent Ability to Ambulate 50 Feet With 2 Turns: Independent Ability to Ambulate 150 Feet: Independent Ambulation Assistive Devices: Cane Transfers Ability Ability to Transfer In/Out of Chair: Independent Exam Const: General: cooperative, comfortable and no acute distress HENMT: Head: normal to inspection and normocephalic Ears: hearing grossly normal bilaterally General nose exam: Normal external nose present and No nasal discharge present Face and sinus: normal facial exam Mouth: Yes Normal oral and palatal mucosa present Throat: uvula midline Eyes: General: appearance normal, both eyes and all related structures Alignment and Position: alignment normal Periorbital: periorbital findings normal Eyelids: eyelids normal Conjunctivae: conjunctivae normal Sclera: sclerae normal Cornea: corneas normal Pupils: Equal, round and reactive pupils present EOM: EOMs intact bilaterally Direct Ophthalmoscopy: normal light reflex Neck: Neck: full ROM and no lymphadenopathy Resp: Effort & Inspection: normal respiratory effort and able to speak in complete sentences Cardio: Rate: regular rate GI: Auscultation: normoactive bowel sounds Neuro: General: patient oriented x3 and moves all extremities Cranial nerves: Yes Equal, round and reactive pupils present, Yes Normal accommodation reflex present, Yes Bilaterally intact EOM present, Yes Nystagmus not present, Yes Normal facial strength present, Yes Midline tongue present, Yes Normal gag reflex present, Yes Symmetric palate elevation present, Yes Normal hearing present, Yes Ability to bilaterally rotate head present and Yes Ability to bilaterally elevate shoulders present Cognition (Neuro): normal cognition Speech: normal speech Gait exam (Neuro): Unable to assess gait Motor exam (neuro): 5/5 motor strength present throughout (left hemiparesis) Deep tendon reflexes (DTR's): Right triceps reflex intensity grade: 1+, Left triceps reflex intensity grade: 2+, Rt Biceps (C5, C6): 1+, Left biceps reflex intensity grade: 2+, Right brachioradialis reflex intensity grade: 1+, Left brachioradialis reflex intensity grade: 2+, Right patellar reflex intensity grade: 1+, Left patellar reflex intensity grade: 2+, Right ankle reflex intensity grade: 1+ and Left ankle reflex intensity grade: 2+ Plantar Reflex Responses: downgoing: right and upgoing (positive Babinski): left Psych: Appearance: grossly normal Progress Note: A&P Assessment and Plan (1) Diabetic neuropathy associated with type 2 diabetes mellitus: Code(s): E11.40 - Type 2 diabetes mellitus with diabetic neuropathy, unspecified Status: Acute (2) Migraine headache: Code(s): G43.909 - Migraine, unspecified, not intractable, without status migrainosus Status: Acute (3) AICD (automatic cardioverter/defibrillator) present: Code(s): Z95.810 - Presence of automatic (implantable) cardiac defibrillator Status: Acute (4) Cardiomyopathy: Code(s): I42.9 - Cardiomyopathy, unspecified Status: Acute (5) S/P CABG (coronary artery bypass graft): Code(s): Z95.1 - Presence of aortocoronary bypass graft Status: Acute (6) Focal seizure: Code(s): R56.9 - Unspecified convulsions Status: Acute (7) Diplopia: Code(s): H53.2 - Diplopia Status: Acute (8) Left hemiplegia: Code(s): G81.94 - Hemiplegia, unspecified affecting left nondominant side Status: Acute (9) Diabetic retinopathy: Code(s): E11.319 - Type 2 diabetes mellitus with unspecified diabetic retinopathy without macular edema Status: Acute (10) Diabetes mellitus: Code(s): E11.9 - Type 2 diabetes mellitus without complications Status: Acute (11) Intracr
--- NOTE | 2019-08-19 02:10 | DS_ITS ---
DATE OF DISCHARGE: 08/13/2019 DISCHARGE ACUTE REHAB DIAGNOSIS: Primary rehab impairment category of stroke with etiological diagnosis of right cerebral hemisphere stroke with hemorrhage. DISCHARGE ACTIVE COMORBID CONDITIONS: 1. Cardiomyopathy. 2. Status post bypass surgery. 3. AICD. 4. Migraine headaches. 5. Hypertension. REASON FOR ADMISSION: 59 years old right-handed male presented to [facility] on 07/25/2019, to undergo right carotid endarterectomy. Postoperatively, within few hours, he had to undergo thrombectomy of the right coronary artery with patch angioplasty. 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 A CT scan of the head revealed evolving stroke within the right cerebral hemisphere with small focal area of hemorrhage. His anticoagulation was being held in the setting of hemorrhage and were planning to hold off for a couple of weeks post stroke as well. Repeat CT scan on 07/28, demonstrated no change from the right middle cerebral artery territorial infarct with hemorrhagic transformation and no mass effect. Clinically, he had the weakness of the left hand, visual difficulties on the left side with diplopia, left hemiparesis, and urinary retention. Clarke catheter was removed on 07/28/2019, but had to be replaced same day because of recurrence of bladder retention. He was started on Flomax with voiding trial to be repeated in 2-3 days, was transferred out of ICU on 07/29/2019. He passed a swallowing study and was advanced to mechanical soft diet with thin liquids. He continued to have left hemiparesis with diplopia, decreased gross motor control, decreased safety awareness and decreased balance. Therapy has been started in the acute care facility and he was transferred to us from [facility] on 07/31/2019. LEVEL OF FUNCTION AT THE TIME OF ADMISSION: Setup for the eating, partial assistance for oral hygiene, substantial assistance for toileting, bathing, upper body dressing, lower body dressing, dependent for footwear, partial assistance for rolling in bed, sit to lying to sitting, supervision for sit to stand, chair transfer, toilet transfer, car transfer, 10 feet walking, 50 feet walking with 2 turns, 150 feet walking, 10 feet walking on uneven surfaces, curb or step, 4 step. He was unable to take 12 steps on uneven surfaces and he required the setup for picking up object. The wheelchair obviously was not acceptable. ANTICIPATED REHAB GOALS AT THE TIME OF ADMISSION: Were to make him independent in eating and oral hygiene, required only supervision for toileting, bathing, upper body dressing, lower body dressing, and footwear and make him independent all other modalities. LEVEL OF FUNCTION AT THE TIME OF DISCHARGE: The patient required only setup for eating and oral hygiene, required only partial assistance for toileting, bathing, upper body dressing, lower body dressing, footwear. He became independent and rolling in bed, required setup for sit to lying, independent in lying to sitting independent in sit to stand, chair transfer, toilet transfer, required setup only for the car transfer, but became independent for the walking 10 feet, 50 feet with 2 turns, 150 feet walking, 10 feet walking on uneven surfaces, curb or step, 4 steps, 12 steps, and picking up object 2. HOSPITAL COURSE: During the hospitalization, he remained stable, was involved actively in the physical therapy and occupation therapy. At the time of discharge, he was ambulating 10 feet independently, 50 feet with 2 turns independently, 150 feet independently using a cane and was able to transfer in and out of chair independently. General physical examination remained stable so as the neurological examination and the vital signs. At the time of discharge, he was instructed to may shower, no driving. Fol
== END 2019-08-13 10:40 | disposition home health service (06) | DRG 57 ==
PROVIDERS: Admitting Provider Psychiatry & Neurology Neurology; PCP Internal Medicine; Visit Provider Psychiatry & Neurology Neurology
DX: I69.354 Hemiplegia and hemiparesis following cerebral infarction affecting left non-dominant side (principal); I42.9 Cardiomyopathy, unspecified; I69.398 Other sequelae of cerebral infarction; H53.2 Diplopia; I69.391 Dysphagia following cerebral infarction; I69.322 Dysarthria following cerebral infarction; E11.42 Type 2 diabetes mellitus with diabetic polyneuropathy; E11.319 Type 2 diabetes mellitus with unspecified diabetic retinopathy without macular edema; F41.8 Other specified anxiety disorders; G43.909 Migraine, unspecified, not intractable, without status migrainosus; H91.93 Unspecified hearing loss, bilateral; I25.10 Atherosclerotic heart disease of native coronary artery without angina pectoris; I69.311 Memory deficit following cerebral infarction; I10 Essential (primary) hypertension; R56.9 Unspecified convulsions; R33.9 Retention of urine, unspecified; Z95.810 Presence of automatic (implantable) cardiac defibrillator; Z95.1 Presence of aortocoronary bypass graft
CPT/HCPCS: 36415; 80048; 80061; 81001; 83036; 85025; 87081; 87086; 92507; 92526; 92610; 96125; 97110; 97116; 97129; 97130; 97150; 97162; 97167; 97530; 97535; A9270; J1815

== ENCOUNTER 2020-12-03 11:47 | Outpatient (CLI) | payer MEDICARE, OTHER, SELFPAY ==
[2020-12-03 12:18] LABS: Glucose 227 mg/dL (75-110)
[2020-12-11 10:27] LABS: Islet Cell Antibody Screen NEGATIVE (NEGATIVE)
== END 2020-12-03 11:48 | disposition home or self-care (01) ==
PROVIDERS: PCP Internal Medicine; Visit Provider Internal Medicine
DX: E11.65 Type 2 diabetes mellitus with hyperglycemia (principal); Z79.4 Long term (current) use of insulin
CPT/HCPCS: 36415; 82947; 84681; 86341

== ENCOUNTER 2023-03-01 08:56 | Outpatient (CLI) | payer MEDICARE, OTHER, SELFPAY ==
[2023-03-01 13:56] LABS: Basophils Absolute Auto 0.1 K/mm3 (0.0-0.1); Basophils Percent Auto 1.1 % (0.2-1.2); Eosinophils Absolute Auto 0.2 K/mm3 (0-0.3); Eosinophils Percent Auto 1.9 % (0-4.4); Hematocrit 45.7 % (42.0-52.0); Hemoglobin 14.2 g/dL (14.0-18.0); Immature Granulocyte Absolute 0.28 K/mm3 (0.00-0.031); Immature Granulocyte Percent A 3.4 % (0-0.5); Lymphocytes Absolute Auto 2.31 K/mm3 (0.9-3.2); Lymphocytes Percent Auto 28.1 % (18.3-44.2); Mean Corpuscular HGB Conc 31.1 g/dl (32-36); Mean Corpuscular Volume 93.5 fl (80-100); Mean Platelet Volume 10.3 fl (7.4-10.4); Monocytes Absolute Auto 0.8 K/mm3 (0.1-0.6); Neutrophils Absolute Auto 4.6 K/mm3 (1.3-6.7); Neutrophils Percent Auto 55.5 % (45.5-73.1); Platelet Count Result 265 k/mm3 (150-375); Red Blood Count 4.89 M/mm3 (4.6-6.20); Red Cell Distribution Width 15.8 % (11.5-14.5); White Blood Count 8.2 K/mm3 (4.5-10.0)
[2023-03-01 14:03] LABS: Alanine Aminotransferase 17 U/L (6-50); Alkaline Phosphatase 82 U/L (38-126); Anion Gap 8 mmol/L (8-16); Aspartate Amino Transferase 43 U/L (17-59); Bilirubin,Total 0.5 mg/dL (0.2-1.3); Blood Urea Nitrogen 27 mg/dL (9-20); Calcium 8.5 mg/dL (8.4-10.2); Carbon Dioxide 28 mmol/L (22-30); Chloride 103 mmol/L (98-107); Estimated Glomerular Filt Rate > 60; Glucose 225 mg/dL (65-110); Potassium 4.3 mmol/L (3.4-5.0); Sodium 139 mmol/L (137-145)
[2023-03-01 18:45] LABS: Hemoglobin A1C 8.2 % (<5.7)
[2023-03-02 18:23] LABS: Prostate Specific Antigen 1.6 ng/mL (< OR = 4.0)
== END 2023-03-01 08:57 | disposition home or self-care (01) ==
PROVIDERS: PCP Internal Medicine; Visit Provider Internal Medicine
DX: E11.40 Type 2 diabetes mellitus with diabetic neuropathy, unspecified (principal); R39.11 Hesitancy of micturition; R35.89 Other polyuria; Z12.5 Encounter for screening for malignant neoplasm of prostate
CPT/HCPCS: 36415; 80053; 83036; 84153; 85025; G0103

== ENCOUNTER 2023-03-23 08:56 | Outpatient (CLI) | payer MEDICARE, OTHER, SELFPAY ==
--- NOTE | 2023-03-27 10:55 | WPDNEUROLOGY ---
Neurology EEG Report General Information Date of Study: 03/23/23 TEST EEG DIAGNOSIS transient alteration of awareness. CONDITION OF RECORDING Awake drowsy and sleep. EEG NUMBER [id number] CLINICAL HISTORY Patient reported he had 2 strokes couple of years ago that affected his left side of the body. Since then he has episodes of zoning out several times a day. Denies any particular loss of consciousness. EEG DESCRIPTION Basic resting occipital frequency consists of low-voltage 9 to 11 hertz per 2nd alpha low-voltage beta activity seen diffusely admixed with waxing and waning posterior alpha rhythm during drowsiness. Bilateral symmetrical sleep activity seen with mixture of beta alpha and theta activity. Photic stimulation produces normal drive. Hyperventilation not done. Non paroxysmal. Nonfocal. Nonlateralizing. IMPRESSION Normal record during brief periods of wakefulness mainly drowsiness and sleep. Clinical correlation recommended
== END 2023-03-23 08:57 | disposition home or self-care (01) ==
LOC: ANHNEURO 08:58
PROVIDERS: PCP Internal Medicine; Visit Provider Internal Medicine
DX: R40.4 Transient alteration of awareness (principal)
CPT/HCPCS: 95816

== ENCOUNTER 2023-05-02 09:00 | Outpatient (CLI) | payer MEDICARE, OTHER, SELFPAY ==
--- NOTE | ~2023-05-02 | US_ITS ---
EXAMINATION: US carotid duplex BI DATE: 05/02/2023 09:30 INDICATION: Carotid occlusion/stenosis TECHNIQUE: Grayscale, color Doppler, and pulsed Doppler images of the cervical carotid arteries were obtained. The degree of vessel stenosis is placed in one of the following categories: normal, <50%, 5 0-69%, >=70% but less than near-occlusion, near-occlusion, or total occlusion. Note that percent sten osis relative to normal distal artery lumen diameter is indirectly measured from velocity measurement s as described by Jeff, et al. Radiology 2003; [id number]. Notes: Normal: Peak systolic velocity <125 centimeters/sec and no plaque <50%. Peak systolic velocity <125 ( EDV <40; ICA/CCA PSV ratio <2.0; used these factors only a tandem lesions or low cardiac output or co ntralateral disease) 50-69 %: PSV 125-230 (EDV 40-100; ratio 2-4) >= 70% but less than near occlusion: PSV greater than 230 (EDV > 100; ratio> 4.0) Near Occlusion: PSV that is variable; markedly narrowed lumen Occlusion: Absent flow on color/spectral Doppler and no lumen on sterling scale. COMPARISON: None. FINDINGS: RIGHT: The right common carotid artery (CCA) peak systolic velocity (PSV) is 38 cm/s. The right internal car otid artery (ICA) PSV is 51 cm/s. The right ICA end-diastolic velocity (EDV) is 15 cm/s. The right IC A/CCA PSV ratio is 1.3. The external carotid artery (ECA) PSV is 48 cm/s. There is antegrade flow in the right vertebral artery. LEFT: The left CCA PSV is 111 cm/s. The left ICA PSV is 46 cm/s. The left ICA EDV is 13 cm/s. The left ICA/ CCA PSV ratio is 0.4. The ECA PSV is 98 cm/s. There is antegrade flow in the left vertebral artery. IMPRESSION: 1. Less than 50% stenosis in the right internal carotid artery by sonographic criteria. 2. Less than 50% stenosis in the left internal carotid artery by sonographic criteria. Reviewed, dictated and finalized at location B. [employer] IMPRESSION: 1. Less than 50% stenosis in the right internal carotid artery by sonographic mary kapadia. 2. Less than 50% stenosis in the left internal carotid artery by sonographic radha bowden.
== END 2023-05-02 09:01 | disposition home or self-care (01) ==
LOC: ANHIMG 09:02
PROVIDERS: PCP Family Medicine; Visit Provider Internal Medicine
DX: I65.23 Occlusion and stenosis of bilateral carotid arteries (principal)
CPT/HCPCS: 93880